=== PATIENT | female | born 1965 | race Caucasian/White ===

== ENCOUNTER 2020-11-22 07:56 | Outpatient (CLI) | payer OTHER, SELFPAY ==
[2020-11-22 08:26] LABS: Basophils Absolute Auto 0.1 K/mm3 (0.0-0.1); Eosinophils Absolute Auto 0.1 K/mm3 (0-0.3); Eosinophils Percent Auto 2.3 % (0-4.4); Hematocrit 37.2 % (37.0-47.0); Hemoglobin 11.9 g/dL (12.0-15.0); Immature Granulocyte Absolute 0.03 K/mm3 (0.00-0.031); Immature Granulocyte Percent A 0.5 % (0-0.5); Lymphocytes Percent Auto 36.6 % (18.3-44.2); Mean Corpuscular Hemoglobin 30.7 pg (26-34); Mean Corpuscular Volume 96.1 fl (80-100); Mean Platelet Volume 10.4 fl (7.4-10.4); Monocytes Absolute Auto 0.6 K/mm3 (0.1-0.6); Monocytes Percent Auto 9.7 % (2.6-8.5); Neutrophils Percent Auto 49.9 % (45.5-73.1); Platelet Count Result 285 k/mm3 (150-375); Red Blood Count 3.87 M/mm3 (4.2-5.4); Red Cell Distribution Width 14.2 % (11.5-14.5)
== END 2020-11-22 07:57 | disposition home or self-care (01) ==
LOC: ANHSURGERY 08:00
PROVIDERS: PCP Physician Assistant; Visit Provider Obstetrics & Gynecology
DX: Z01.818 Encounter for other preprocedural examination (principal); D21.9 Benign neoplasm of connective and other soft tissue, unspecified
CPT/HCPCS: 36415; 85025; 86850; 86900; 86901

== ENCOUNTER 2020-11-26 00:44 | Day surgery (SDC) | payer OTHER, SELFPAY ==
[2020-11-19 08:41] VITALS: BMI 30.7
--- NOTE | 2020-11-24 12:30 | PM.IMHP ---
H&P: HPI History of Present Illness Date/Time: 11/24/20 12:30 55-year-old 3 para 3 admitted for robotic total vaginal hysterectomy and bilateral salpingo-oophorectomy secondary to symptomatic uterine fibroids. She had pain discomfort dyspareunia uterus is nearly 300cm cubed by ultrasound risks and benefits reviewed including but not exclusive of , aspiration pneumonia, bleeding, transfusion, perforation injury to bowel, bladder, ureters, or other internal organs with need for open laparotomy. She received the ACOG handout total hysterectomy as well as advancing and out. She had all questions answered. She asked to proceed Chief Complaint: symptomatic uterine fibroids Review of Systems Review of Systems: All systems reviewed & are unremarkable except as noted in HPI and below PMFSH Family History Family History Mother Patient's mother is in good health Father Patient's father is in good health Sibling Patient's sister is in good health Social History Social History Smoking status: Never smoker Second hand tobacco smoke exposure: No Alcohol intake: current Drinks per week: 2 Substance use: never Substance use type: does not use Spiritual care concerns: No Meds Home Medications and Allergies Home Medications Medication Instructions Recorded Confirmed Type levothyroxine 88 mcg tablet 88 mcg PO DAILY #90 tablet 09/03/20 11/19/20 Rx Allergies Allergy/AdvReac Type Severity Reaction Status Date / Time ampicillin Allergy Mild Hives Verified 11/19/20 08:41 carbamazepine Allergy Mild Unknown Verified 11/19/20 08:41 Penicillins Allergy Mild Unknown Verified 11/19/20 08:41 phenytoin Allergy Mild Hives Verified 11/19/20 08:41 propranolol Allergy Mild Unknown Verified 11/19/20 08:41 STADOL Allergy Intermediate CHEST Uncoded 11/19/20 08:41 PRESSURE Exam Const: General: no acute distress Eyes: General: appearance normal, both eyes and all related structures Neck: Neck: supple and no JVD Thyroid: thyroid normal Resp: Effort & Inspection: normal respiratory effort Auscultation: clear to auscultation bilaterally Cardio: Rate: regular rate Rhythm: regular rhythm GI: Inspection: non-distended GI Palp: Yes Soft to palpation, No Tenderness to palpation present (GI) and No Guarding due to palpation present (GI) Auscultation: normal bowel sounds : External Female Exam: normal external appearance Speculum Exam - Vagina: normal appearance of the vagina Speculum Exam - Cervix: normal appearance of the cervix Bimanual exam- vagina & uterus: enlarged Bimanual Exam- Adnexa, other: no masses Skin: General skin exam: no rashes or lesions noted Extrem: General: normal to inspection and no edema Psych: Mental Status: mental status grossly normal Affect: normal affect Assessment and Plan Additional Plan impression: Symptomatic uterine fibroids Plan: Robotic total vaginal hysterectomy and bilateral salpingo-oophorectomy
[2020-11-26] VITALS (29 sets, daily range): BP systolic 91–130; BP diastolic 56–79; PULSE 49–74; RESP 10–20; TEMP 36.4–36.8; O2SAT 97–100; BMI 30.8
--- NOTE | 2020-11-26 06:53 | WPDANESEPPF ---
Anes - Initial Pre Proc Eval Procedure: Operation Date: 11/26/20 07:30 Proposed Procedures p Robotic Assisted Total Vaginal Hysterectomy With Bilateral Salpingo-oophorectomy - Byron Ledbetter MD Date/Time: 11/26/20 06:53 Surgeon: Byron Ledbetter MD Pre Op Diagnosis: Fibroids, Enlarged Uterus Patient Data Age: 55 Gender: F Height: 1.65 m Weight: 83.91 kg Allergies Allergy/AdvReac Type Severity Reaction Status Date / Time ampicillin Allergy Mild Hives Verified 11/19/20 08:41 carbamazepine Allergy Mild Unknown Verified 11/19/20 08:41 Penicillins Allergy Mild Unknown Verified 11/19/20 08:41 phenytoin Allergy Mild Hives Verified 11/19/20 08:41 propranolol Allergy Mild Unknown Verified 11/19/20 08:41 STADOL Allergy Intermediate CHEST Uncoded 11/19/20 08:41 PRESSURE Home Medications Medication Instructions Recorded Confirmed Type levothyroxine 88 mcg tablet 88 mcg PO DAILY #90 tablet 09/03/20 11/26/20 Rx Patient hx anesthesia problems: none Family hx anesthesia problems: none Results Review: All pre-operative results and documents have been reviewed as part of the pre-operative evaluation. [facility] Past Medical History Medical History (Updated 11/26/20 @ 06:59 by Byron Stevens MD) Fibroid uterus Surgical History Surgical History (Updated 11/26/20 @ 06:59 by Byron Stevens MD) H/O lumbosacral spine surgery Hx of tonsillectomy Family History Family History Mother Patient's mother is in good health Father Patient's father is in good health Sibling Patient's sister is in good health Social History Social History Smoking status: Never smoker Second hand tobacco smoke exposure: No Alcohol intake: current Drinks per week: 2 Substance use: never Substance use type: does not use Living arrangements: with family Spiritual care concerns: No Anes - Eval Final PreProcedure Day of Procedure 11/26/20 06:53 Patient weight: obese Heart: regular rate and rhythm Lungs: clear to auscultation Airway: Mallampati scale class 1 Neurological: alert and oriented Last oral intake: >/= 8 hours ASA classification: II Emergent: no Anesthetic plan: proceed Anesthesia type and monitoring: general ETT and standard monitoring Results Review: All pre-operative results and documents have been reviewed as part of the pre-operative evaluation. Informed Consent: The patient's anesthetic plan and its attendant risks and benefits were discussed with the patient/family/POA. Questions were solicited and answers provided to the satisfaction of the patient/family/POA.
[2020-11-26] MEDS: KETOROLAC 15 MG/ML VIAL (*BKC) IV PUSH (07:01)
[2020-11-26] MEDS: ACETAMINOPHEN 500 MG TABLET 1000 MG PO (07:02)
--- NOTE | 2020-11-26 07:17 | WPDHPUPDATE1 ---
History and Physical Update Update Date/Time: 11/26/20 07:17 History and Physical has been reviewed, including an updated exam of the patient. There are NO changes in the patient's condition. Risks, benefits, and alternatives have been discussed and questions answered. Patient agrees to proceed with procedure.
[2020-11-26] MEDS: ceFAZolin 2 GM/D5W 50 ML 2 GM/50 ML BAG IVPB (07:27)
--- NOTE | 2020-11-26 08:48 | W.PM.PROC2 ---
Procedure Note - Detailed Date of Procedure 11/26/20 Pre-op Diagnosis Fibroids, Enlarged Uterus Post-op Diagnosis same Procedure Performed Robotic total vaginal hysterectomy and bilateral salpingo-oophorectomy Surgeon Byron Ledbetter MD Anesthesia general Indications this is a 55-year-old female with a markedly enlarged uterus and pelvic pain suspected fibroids Findings uterus that measured more than 300g. Normal-appearing ovaries and tubes Description of Procedure the patient is prepped draped in normal sterile fashion placed in dorsal lithotomy position. Under excellent general endotracheal anesthesia weighted speculum placed posterior fornix vagina. The anterior lip of the cervix grasped with single-tooth tenaculum the uterus sounded to 11cm. Serial dilatation with fragmented dilators performed followed by passes the 10. JUN and the 3.5 cold cup. A 16 Bengali catheter was placed gently the bladder and drained clear urine. The remainder the instruments removed and the gloves were changed. A supraumbilical incision made the Veress needle passed in the abdomen. Abdomen filled with CO2 gas [id number]. The 8mm trocar advanced in the abdomen. The downside visualized no injury seen. Patient placed in Trendelenburg left and right lower quadrant incisions made the 8mm trocars advanced under direct visualization assuring no injury. A right upper quadrant incision made the 8mm trocar advanced under direct visualization assuring no injury. The robot was docked. Attention was turned to the delinquency counselor. The left round ligament was grasped, burned, cut. Anteriorly the bladder was reflected by sharply dissecting the peritoneum and reflecting the bladder the bladder caudally to the opposite round ligament was clamped, burned, cut. Next the left infundibulopelvic structure was skeletonized to remove the left ovary and tube. This was clamped, burned, cut and brought to the level of previously cut round ligament. In like fashion removing the right ovary and tube the right infundibulopelvic structure was skeletonized. This was serially clamped, burned, cut and brought to the level of previously cut round ligament. The cardinal broad ligaments on the left were then serially skeletonized these were clamped, burned, cut hugging the cervix and uterus until the uterine vessels could be seen on the left. These were very large tortuous. They were individually clamped, burned, cut. In like fashion the cardinal broad ligaments on the right were serially skeletonized. These were clamped, burned, cut and brought down the lateral edge of the cervix and uterus hugging them until the uterine vessels could be seen. Then the uterine vessels were also large and tortuous on the right. They were individually clamped, burned, cut and great blanching the uterus was seen. A colpotomy incision was made in the cervix uterus ovaries and tubes removed through the vagina. Blood loss was estimated [id number]. The vagina was closed with continuous running 0V lock from lateral edge to lateral edge back to the midline. Irrigation undertaken until clear and hemostasis was assured. The robot was undocked and the gas removed from the abdomen. The trocars removed and the incisions closed with 4 Monocryl and the patient was awakened and went to recovery in satisfactory condition. All sponge, needle, instrument counts were correct. There were no immediate complications noted Estimated Blood Loss 50 Drains No Packing No Pathology yes Complications No immediate complications Condition stable Disposition PACU
[2020-11-26] MEDS: LACTATED RINGERS 1,000 ML 30 ML IV CONT ×3 (09:01→14:10)
--- NOTE | 2020-11-26 09:37 | SUR.PHASEI ---
0937 large clot noted. perineum skin care provided. dr. jose j lira called and aware. will cont to monitor bleeding at this time. -
--- NOTE | 2020-11-26 09:48 | SUR.PHASEI ---
0948 - dr. jose j lira notified of pt's bleeding. pt tano pad and linens changed. will continue to monitor
[2020-11-26] MEDS: fentaNYL CITRATE INJ (*CRX) 100 MCG/2 ML VIAL 25 MCG IV PUSH ×4 (09:58→14:39)
--- NOTE | 2020-11-26 11:55 | SUR.PHASEI ---
1150 - dr. jose j lira at bedside, assessing pt's bleeding.
--- NOTE | 2020-11-26 12:05 | PM.GYNPNOP ---
PLASTICS AND COMPOSITES INSPECTOR - A/P Postoperative Procedures: Procedures Operation Date: 11/26/20 07:30 Actual Procedure Side Surgeon p Robotic Assisted Total Vaginal Hysterectomy With Bilateral Salpingo-oophorectomy Bilateral Byron Ledbetter MD Operation Date: 11/26/20 12:15 <No data on this case meets the specified criteria> Time Spent With Patient Time: Total time spent is greater than 50% in coordination of care (as documented) at patient's floor/unit and/or counseling patient: Time with patient: less than 15 minutes PLASTICS AND COMPOSITES INSPECTOR- PN:Subj Post-Op Subjective Date/time seen: 11/26/20 12:05 Interval history: Patient has been watched and continues to drain blood with a few clots. She is hemodynamically stable however it continues to bleed. In light of this I have offered her every view in the OR under sedation for checking the vaginal cuff and placing a stitch. She is agreeable and agrees to proceed PLASTICS AND COMPOSITES INSPECTOR - PN: Obj Data Vital Signs Vital Signs: Vital Signs - 24 hr 11/26/20 07:12 11/26/20 09:01 11/26/20 09:15 Temperature 97.7 F 97.5 F L Pulse Rate 65 74 55 L Respiratory Rate 14 14 14 Blood Pressure 122/73 114/64 102/63 Pulse Oximetry 100 100 100 11/26/20 09:30 11/26/20 09:45 11/26/20 10:00 Temperature Pulse Rate 56 L 53 L 49 L Respiratory Rate 10 L 10 L 12 Blood Pressure 129/75 121/57 L 122/78 Pulse Oximetry 98 100 100 11/26/20 10:15 11/26/20 10:30 11/26/20 10:45 Temperature Pulse Rate 56 L 59 L 58 L Respiratory Rate 12 20 14 Blood Pressure 130/78 129/79 120/77 Pulse Oximetry 100 99 100 11/26/20 11:00 11/26/20 11:15 11/26/20 11:30 Temperature Pulse Rate 53 L 55 L 58 L Respiratory Rate 12 16 12 Blood Pressure 110/72 108/72 105/62 Pulse Oximetry 100 100 98 11/26/20 11:45 11/26/20 12:00 Temperature Pulse Rate 53 L 60 Respiratory Rate 16 12 Blood Pressure 105/66 122/63 Pulse Oximetry 98 99 Intake/Output Intake/Output: Intake & Output 10/19/11/24/20 11/25/20 11/26/20 23:59 23:59 23:59 23:59 Intake Total 50 Balance 50 Meds/Results Medications: Active Medications Generic Name Dose Route Start Last Admin Trade Name Freq PRN Reason Stop Dose Admin Fentanyl Citrate 25 mcg 11/26/20 07:00 11/26/20 09:58 Fentanyl Citrate Inj (*Crx) 100 Mcg/2 Ml Vial IV PUSH 25 mcg Q2M PRN Administration Pain Lactated Ringer's 1,000 mls @ 30 mls/hr 11/26/20 06:35 11/26/20 09:01 Lr - Lactated Ringers Iv IV CONT 30 mls/hr .Q24H CJ Administration Lactated Ringer's 1,000 mls @ 30 mls/hr 11/26/20 07:00 11/26/20 09:01 Lr - Lactated Ringers Iv IV CONT 30 mls/hr .Q24H CJ Administration Ondansetron HCl 4 mg 11/26/20 07:00 Ondansetron Inj 4 Mg/2 Ml Vial IV PUSH ONCE PRN Nausea
--- NOTE | 2020-11-26 12:59 | SUR.PHASEI ---
patient awake aware will be returning to OR soon with Dr Mercedes to exam and address bleeding. phone consent obtained from Mom.
--- NOTE | 2020-11-26 14:07 | W.PM.PROC2 ---
Procedure Note - Detailed Date of Procedure 11/26/20 Pre-op Diagnosis Postop bleed Post-op Diagnosis same Procedure Performed Repair of small lateral wall laceration Surgeon Byron Ledbetter MD Anesthesia MAC Indications This is a patient who underwent robotic total vaginal hysterectomy had postop bleeding. Findings An approximately 3cm wall laceration along the left lateral wall presumably from removal of the uterus. About 100cc of clots removed from the vagina. Description of Procedure The patient was prepped draped in the normal sterile fashion placed in the dorsal lithotomy position. Under excellent MAC anesthesia a weighted speculum placed in posterior fornix of the vagina. The vaginal cuff appeared intact there was of small bloody spot which was a [id number] 3-0 Vicryl was placed. Laterally of approximately 3cm laceration was noted along the vaginal wall. This was oozing and was cauterized. The vast the laceration was closed with 3 [id number] 0 Vicryl stitch and excellent hemostasis was noted. It was watched for 5minutes and no bleeding was seen. The vagina was then packed with Premarin soaked packing. Blood loss was estimated 25cc for this procedure Estimated Blood Loss 25 Drains No Packing Yes Pathology none sent Complications No immediate complications Condition stable Disposition PACU
--- NOTE | 2020-11-26 15:42 | PC.NURSE ---
This patient, Rosalie Hoover, was received from PACU on 11/26/20 at 1542. Patient/family oriented to unit policies and routines
[2020-11-26] MEDS: DEXTROSE 5%/LACTATED RINGERS 1,000 ML 125 ML IV CONT (16:02)
[2020-11-26] MEDS: LANOLIN (LANSINOH) 7.5 GM CREAM 1 APPLIC (16:03)
[2020-11-26] MEDS: KETOROLAC 30 MG/ML VIAL (*BKC) IV PUSH ×2 (16:10→22:06)
[2020-11-26] MEDS: ENOXAPARIN 40 MG/0.4 ML SYRINGE SUB-Q (17:53)
[2020-11-26] MEDS: HYDROcodone/acetaminophen (*CRX) 5-325 MG TABLET 1 TAB PO (17:53)
[2020-11-26] MEDS: SODIUM CHLORIDE 0.9% IV 500 ML IV CONT (22:05)
[2020-11-27] MEDS: DEXTROSE 5%/LACTATED RINGERS 1,000 ML 125 ML IV CONT (01:00)
[2020-11-27 04:15] VITALS: BP 98/57; PULSE 65; RESP 16; TEMP 36.8; O2SAT 99
[2020-11-27] MEDS: HYDROcodone/acetaminophen (*CRX) 5-325 MG TABLET 1 TAB PO ×2 (04:21→08:02)
[2020-11-27] MEDS: IBUPROFEN 600 MG TABLET PO (04:21)
[2020-11-27 05:42] LABS: Basophils Percent Auto 0.4 % (0.2-1.2); Eosinophils Absolute Auto 0.1 K/mm3 (0-0.3); Eosinophils Percent Auto 1.2 % (0-4.4); Hematocrit 25.3 % (37.0-47.0); Hemoglobin 8.2 g/dL (12.0-15.0); Immature Granulocyte Absolute 0.03 K/mm3 (0.00-0.031); Immature Granulocyte Percent A 0.3 % (0-0.5); Lymphocytes Absolute Auto 1.51 K/mm3 (0.9-3.2); Lymphocytes Percent Auto 14.6 % (18.3-44.2); Mean Corpuscular HGB Conc 32.4 g/dl (32-36); Mean Corpuscular Hemoglobin 30.4 pg (26-34); Mean Corpuscular Volume 93.7 fl (80-100); Mean Platelet Volume 11.9 fl (7.4-10.4); Monocytes Absolute Auto 0.8 K/mm3 (0.1-0.6); Monocytes Percent Auto 7.7 % (2.6-8.5); Neutrophils Absolute Auto 7.8 K/mm3 (1.3-6.7); Neutrophils Percent Auto 75.8 % (45.5-73.1); Platelet Count Result 227 k/mm3 (150-375); White Blood Count 10.3 K/mm3 (4.5-10.0)
--- NOTE | 2020-11-27 07:11 | P.DS_ITS ---
DS: Admitting Diagnosis Discharge Date Admitting Diagnosis pelvic pain and enlarged uterus DS: Summary Hospital Course Hospital Course: patient was admitted for robotic total vaginal hysterectomy and bilateral salpingectomy. Her course was complicated by some vaginal bleeding which was found to be a small tear in the left vaginal wall. This was repaired shortly after procedure she had no bleeding following packing and. She was up, voiding without difficulty, ambulating, generally without complaints Time Spent with Patient Time attestation: Total time spent providing and/or coordinating discharge services: Exam Const: General: no acute distress Eyes: General: appearance normal, both eyes and all related structures Neck: Neck: supple and no JVD Thyroid: thyroid normal Resp: Effort & Inspection: normal respiratory effort Auscultation: clear to auscultation bilaterally Cardio: Rate: regular rate Rhythm: regular rhythm GI: Inspection: non-distended GI Palp: Yes Soft to palpation, No Tenderness to palpation present (GI) and No Guarding due to palpation present (GI) Auscultation: normal bowel sounds Skin: General skin exam: no rashes or lesions noted Extrem: General: normal to inspection and no edema Psych: Mental Status: mental status grossly normal Affect: normal affect DS: Data Data Completed and Pending Pending studies at discharge: Pending at discharge 11/26/20 08:11 Surgical [PTH] Routine Labs on day of discharge: Labs from last 24 hours 11/27/20 04:20 WBC 10.3 H RBC 2.70 L Hgb 8.2 L D Hct 25.3 L MCV 93.7 MCH 30.4 MCHC 32.4 RDW 14.0 Plt Count 227 MPV 11.9 H Immature Gran % (Auto) 0.3 Neut % (Auto) 75.8 H Lymph % (Auto) 14.6 L Robeson % (Auto) 7.7 Eos % (Auto) 1.2 Baso % (Auto) 0.4 Lymph # (Auto) 1.51 Robeson # (Auto) 0.8 H Eos # (Auto) 0.1 Baso # (Auto) 0.0 Abs Immat Gran (auto) 0.03 Absolute Neuts (auto) 7.8 H Absolute Nucleated RBC 0.0 Nucleated RBC % 0.0 Discharge Plan Discharge Patient Disposition: Home, Self-Care Stand Alone Forms: General Discharge Instructions Follow-up/Referrals: Byron Ledbetter MD [Physician] - Discharge Medications: New hydrocodone-acetaminophen 5-325 mg tablet 1 tablet PO Q4H PRN (Reason: pain) Qty: 30 RF: 0 No Action levothyroxine 88 mcg tablet 88 mcg PO DAILY Qty: 90 RF: 0
--- NOTE | 2020-11-27 07:12 | PM.GYNPNOP ---
ELASTIC TAPE INSERTER - A/P Postoperative Procedures: Procedures Operation Date: 11/26/20 07:30 Actual Procedure Side Surgeon p Robotic Assisted Total Vaginal Hysterectomy With Bilateral Salpingo-oophorectomy Bilateral Byron Ledbetter MD Operation Date: 11/26/20 12:15 Actual Procedure Side Surgeon p Vaginal Exam Under Anesthesia Byron Ledbetter MD Time Spent With Patient Time: Total time spent is greater than 50% in coordination of care (as documented) at patient's floor/unit and/or counseling patient: Time with patient: less than 15 minutes ELASTIC TAPE INSERTER- PN:Subj Post-Op Subjective Date/time seen: 11/27/20 07:12 Interval history: Patient has been watched and continues to drain blood with a few clots. She is hemodynamically stable however it continues to bleed. In light of this I have offered her every view in the OR under sedation for checking the vaginal cuff and placing a stitch. She is agreeable and agrees to proceed Subjective: patient reports feeling better and patient has no complaints Review of Systems Review of Systems: All systems reviewed & are unremarkable except as noted in HPI and below Exam Const: General: no acute distress Eyes: General: appearance normal, both eyes and all related structures Neck: Neck: supple and no JVD Thyroid: thyroid normal Resp: Effort & Inspection: normal respiratory effort Auscultation: clear to auscultation bilaterally Cardio: Rate: regular rate Rhythm: regular rhythm GI: Inspection: non-distended GI Palp: Yes Soft to palpation, No Tenderness to palpation present (GI) and No Guarding due to palpation present (GI) Auscultation: normal bowel sounds : General: Yes bladder normal to palpation External Female Exam: normal external appearance Speculum Exam - Vagina: normal vaginal discharge and No vaginal bleeding Speculum Exam - Cervix: nontender Bimanual exam- vagina & uterus: bladder normal to palpation and No Cervical tenderness present OB/external & speculum: No vaginal bleeding Skin: General skin exam: no rashes or lesions noted Extrem: General: normal to inspection and no edema Psych: Mental Status: mental status grossly normal Affect: normal affect ELASTIC TAPE INSERTER - PN: Obj Data Vital Signs Vital Signs: Vital Signs - 24 hr 11/26/20 09:01 11/26/20 09:15 11/26/20 09:30 Temperature 97.5 F L Pulse Rate 74 55 L 56 L Respiratory Rate 14 14 10 L Blood Pressure 114/64 102/63 129/75 Pulse Oximetry 100 100 98 11/26/20 09:45 11/26/20 10:00 11/26/20 10:15 Temperature Pulse Rate 53 L 49 L 56 L Respiratory Rate 10 L 12 12 Blood Pressure 121/57 L 122/78 130/78 Pulse Oximetry 100 100 100 11/26/20 10:30 11/26/20 10:45 11/26/20 11:00 Temperature Pulse Rate 59 L 58 L 53 L Respiratory Rate 20 14 12 Blood Pressure 129/79 120/77 110/72 Pulse Oximetry 99 100 100 11/26/20 11:15 11/26/20 11:30 11/26/20 11:45 Temperature Pulse Rate 55 L 58 L 53 L Respiratory Rate 16 12 16 Blood Pressure 108/72 105/62 105/66 Pulse Oximetry 100 98 98 11/26/20 12:00 11/26/20 12:15 11/26/20 12:30 Temperature Pulse Rate 60 58 L 64 Respiratory Rate 12 12 16 Blood Pressure 122/63 109/66 104/74 Pulse Oximetry 99 97 97 11/26/20 12:45 11/26/20 13:00 11/26/20 13:15 Temperature Pulse Rate 61 62 60 Respiratory Rate 12 13 12 Blood Pressure 97/67 L 106/67 95/65 L Pulse Oximetry 98 98 99 11/26/20 14:10 11/26/20 14:25 11/26/20 14:40 Temperature 98.1 F Pulse Rate 61 55 L 65 Respiratory Rate 12 12 15 Blood Pressure 98/65 L 107/69 101/71 Pulse Oximetry 100 100 98 11/26/20 14:55 11/26/20 15:10 11/26/20 15:25 Temperature Pulse Rate 71 67 63 Respiratory Rate 20 12 15 Blood Pressure 101/67 105/64 111/67 Pulse Oximetry 99 98 97 11/26/20 15:45 11/26/20 19:20 11/26/20 19:50 Temperature 97.9 F 98.2 F Pulse Rate 63 64 59 L Respiratory Rate 16 16 18 Blood Pressure 97/57 L 97/58 L 91/57 L Pulse Oximetry 100 97 99 11/26/20 23:00 11/27/20 04:15 Temperat
[2020-11-27 07:40] VITALS: BP 90/55; PULSE 63; RESP 12; TEMP 36.5; O2SAT 96
[2020-11-27] MEDS: SIMETHICONE 80 MG TAB.CHEW PO (08:02)
[2020-11-27] MEDS: DOCUSATE SODIUM 100 MG CAPSULE PO (08:02)
== END 2020-11-27 11:40 | disposition home or self-care (01) ==
LOC: ANHSURGERY 11:58 → ANHOB2 15:35
PROVIDERS: PCP Physician Assistant; Visit Provider Obstetrics & Gynecology
PROC: (CPT 58552; principal; 2020-11-26 07:30)
DX: D25.1 Intramural leiomyoma of uterus (principal); N88.8 Other specified noninflammatory disorders of cervix uteri; N80.0 Endometriosis of uterus; N83.8 Other noninflammatory disorders of ovary, fallopian tube and broad ligament; N83.02 Follicular cyst of left ovary; N83.01 Follicular cyst of right ovary; N73.6 Female pelvic peritoneal adhesions (postinfective); E66.9 Obesity, unspecified; Z68.30 Body mass index [BMI] 30.0-30.9, adult
CPT/HCPCS: 58552; S2900; 36415; 85025; 86850; 86900; 86901; 88307; 99199; A9270; J0690; J1100; J1650; J1885; J2250; J2405; J2704; J2710; J3010; J7030; J7040; J7120; J7121

== ENCOUNTER 2022-12-05 07:00 | Outpatient (NON) | payer OTHER, SELFPAY | END 2022-12-05 07:01 | disposition home or self-care (01) | LOC: ANHLAB 12-06 14:31 | PROVIDERS: PCP Physician Assistant; Visit Provider Nurse Practitioner | DX: L72.0 Epidermal cyst (principal) | CPT/HCPCS: 88305 ==

== ENCOUNTER 2023-01-04 09:30 | Outpatient (CLI) | payer OTHER, SELFPAY ==
--- NOTE | ~2023-01-04 | XR_ITS ---
XR wrist LT min 3V 01/04/2023 09:58 Indication: Left wrist pain Procedure: 4 views left wrist Comparison: No prior studies for comparison. 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 No fracture or traumatic malalignment. Scaphoid appears intact. No focal soft tissue abnormality. No foreign bodi es. Impression: 1: No acute fracture. Reviewed, dictated and finalized at location L. SPLICER Impression: 1: No acute fracture.
== END 2023-01-04 09:31 | disposition home or self-care (01) ==
PROVIDERS: PCP Physician Assistant; Visit Provider Physician Assistant
DX: M25.532 Pain in left wrist (principal)
CPT/HCPCS: 73110

== ENCOUNTER 2023-02-06 11:50 | Outpatient (CLI) | payer OTHER, SELFPAY ==
--- NOTE | 2023-02-06 12:28 | ECG_ITS ---
Measurements Intervals [place] Rate: 50 P: 68 AK: 186 QRS: 19 QRSD: 102 T: 30 QT: 414 QTc: 378 Interpretive Statements SINUS BRADYCARDIA INCOMPLETE RIGHT BUNDLE BRANCH BLOCK BASELINE ARTIFACT- I, II, III, AVR, AVL, AVF BORDERLINE ECG NO PREVIOUS ECG AVAILABLE FOR COMPARISON Electronically Signed On 02-06-2023 13:00:57 OIL GAS AND PIPE TESTER by Brien Tyler D.O.
[2023-02-06 13:00] LABS: Basophils Absolute Auto 0.1 K/mm3 (0.0-0.1); Basophils Percent Auto 1.1 % (0.2-1.2); Eosinophils Absolute Auto 0.1 K/mm3 (0-0.3); Eosinophils Percent Auto 1.5 % (0-4.4); Hematocrit 40.3 % (37.0-47.0); Hemoglobin 12.6 g/dL (12.0-15.0); Immature Granulocyte Absolute 0.02 K/mm3 (0.00-0.031); Immature Granulocyte Percent A 0.4 % (0-0.5); Lymphocytes Absolute Auto 2.09 K/mm3 (0.9-3.2); Lymphocytes Percent Auto 39.5 % (18.3-44.2); Mean Corpuscular HGB Conc 31.3 g/dl (32-36); Mean Corpuscular Hemoglobin 29.7 pg (26-34); Mean Platelet Volume 11.2 fl (7.4-10.4); Monocytes Absolute Auto 0.5 K/mm3 (0.1-0.6); Monocytes Percent Auto 9.5 % (2.6-8.5); Neutrophils Absolute Auto 2.5 K/mm3 (1.3-6.7); Platelet Count Result 242 k/mm3 (150-375); Red Blood Count 4.24 M/mm3 (4.2-5.4); Red Cell Distribution Width 14.2 % (11.5-14.5); White Blood Count 5.3 K/mm3 (4.5-10.0)
[2023-02-06 13:09] LABS: Urine Cotinine NEGATIVE
[2023-02-06 13:10] LABS: Albumin Level 4.6 g/dL (3.5-5.1); Estimated Glomerular Filt Rate > 60; Glucose 96 mg/dL (65-110)
[2023-02-06 13:12] LABS: Hemoglobin A1C 5.7 % (<5.7)
== END 2023-02-06 11:51 | disposition home or self-care (01) ==
LOC: ANHSURGERY 11:54
PROVIDERS: PCP Physician Assistant; Visit Provider Orthopaedic Surgery
DX: M17.12 Unilateral primary osteoarthritis, left knee (principal); Z01.818 Encounter for other preprocedural examination; I45.10 Unspecified right bundle-branch block
CPT/HCPCS: 80307; 82040; 82565; 82947; 83036; 85025; 86850; 86900; 86901; 87081; 93005

== ENCOUNTER 2023-02-12 01:07 | Day surgery (SDC) | payer OTHER, SELFPAY ==
[2023-02-06 11:25] VITALS: BP 132/84; PULSE 70; RESP 18; TEMP 37.2; O2SAT 100; BMI 32.3
--- NOTE | 2023-02-06 11:26 | PC.NURSE ---
PRE-OP INSTRUCTIONS, PLEASE READ CAREFULLY Report to the Outpatient Waiting Room, entrance under the green pavilion located off [facility], at time _0600_ on date _02/12/23_. Planned Procedure Time: _0730_. PACK A SMALL OVERNIGHT BAG AND LEAVE IT IN THE CAR ALONG WITH YOUR WALKER Time changes happen often and if your time is changed the preop area will call you the afternoon before. - You and your visitor will be asked to self-screen and do not enter if you have any COVID symptoms. - A mask is optional within the hospital at this time. -VISITING HOURS 8AM-8PM Patients may have clear liquids (water, carbonated beverages, clear teas, apple juice) until 3 hours prior to surgery (0430 AM) with a maximum of 20 ounces. - No food from midnight until time of surgery Take the following medications with a SIP of water the morning of surgery: _LEVOTHYROXINE_ DO NOT STOP ANY OF YOUR OTHER PRESCRIPTION MEDICATIONS PRIOR TO SURGERY ?EXCEPT THE FOLLOWING Medications to discontinue per ANESTHESIA - APPLE CIDER COMPLEX , Date to take last dose 02/09/23_ Please no make-up, nail indonesian, hairspray, perfume, deodorant, or body powder the day of surgery. No jewelry (including any body piercings) or valuables the day of surgery, leave them at home. Please take a shower or bath the night before, or the morning of, surgery with an antibacterial soap. Wear comfortable, loose fitting clothing. - Jewelry must be removed prior to entering the operating room. Rings and piercings that are not removed may be cut off. - The hospital will not accept responsibility for valuables. - Please leave all valuables, including medications, at home the day of surgery. If you are going home after surgery, a licensed bus driver/monitor must drive you home. - NO public transportation without another adult if you receive anesthesia. - We recommend that an adult stay with you for 24 hours following discharge. - We also recommend that you do not drive, make important decision, drink alcoholic beverages, or take any drugs that were not prescribed by your health care provider for at least 24 hours after your discharge time. Follow any additional instructions given to you from your surgeon. If you or anyone in your household have experienced Covid symptoms in the past week, please notify your surgeon or the nurse liaison at the phone number below for possible testing. Instructions given to _PATIENT_and asked if any additional questions and then verbalized understanding. Patient advised to call surgeon office or pre surgery nurse liaison [phone] if any additional questions.
--- NOTE | 2023-02-08 10:35 | PM.IMHP ---
H&P: HPI History of Present Illness Date/Time: 02/08/23 10:35 Chief Complaint: Knee pain and osteoarthritis left. Narrative: Patient has had knee pain on the left for many years now. She has failed conservative treatment consisting medicine therapy cortisone exercise time. She is to the point where nothing else is working would like to consider surgical intervention. Review of Systems Musculoskeletal: Musculoskeletal: Reports arthralgias and Reports joint swelling PMFSH Past Medical History Medical History Fibroid uterus Surgical History Surgical History H/O lumbosacral spine surgery History of hysterectomy Hx of tonsillectomy Family History Family History Mother Patient's mother is in good health Father Patient's father is in good health Sibling Patient's sister is in good health Social History Social History (Updated 12/18/22 @ 09:03 by Estefania Baxter CMA) Smoking status: Never smoker Second hand tobacco smoke exposure: No Additional smoking assessment comments: PT KARI ALL FORMS OF TOBACCO USE Alcohol intake: current Drinks per week: 2 Substance use: never Substance use type: does not use Lack of Transportation: No Lack of Food: Never True Current Housing: I Have Housing Concerned About Future Housing: No Difficulty Paying Gas/Electric Bills: No Difficulty Paying for Meds: No Currently Unemployed: No Education: Associate Degree Difficulty w/ Childcare or Family Care: No Living arrangements: with family Occupation/Education: unemployed Spiritual care concerns: No Meds Home Medications and Allergies Home Medications Medication Instructions Recorded Confirmed Type celecoxib 200 mg capsule (Celebrex) 200 mg PO DAILY 10/02/22 02/06/23 History levothyroxine 88 mcg tablet 88 mcg PO DAILY #90 tabs 10/30/22 02/06/23 Rx cider [id number] 300 1 tablet PO DAILY 02/06/23 02/06/23 History mg-8.3 mg tablet Allergies Allergy/AdvReac Type Severity Reaction Status Date / Time ampicillin Allergy Mild Hives Verified 02/06/23 12:08 carbamazepine Allergy Mild Unknown-TOLD Verified 02/06/23 12:08 WHEN HOSPILIZED WITH [facility] Penicillins Allergy Mild Hives Verified 02/06/23 12:08 phenytoin Allergy Mild Hives Verified 02/06/23 12:08 propranolol Allergy Mild Unknown-UNABLE Verified 02/06/23 12:08 TO RECALL butorphanol [From Stadol] Allergy Unknown chest Verified 02/06/23 12:08 pressure Exam Narrative: On exam she has motion knee from 3 to 110?. She has varus deformity She walks with an antalgic gait. Neurologically she appears to be grossly intact. She has pain and crepitus with any manipulation of her left knee. Eyes: General: appearance normal, both eyes and all related structures Neck: Neck: supple Resp: Effort & Inspection: normal respiratory effort Cardio: Rate: regular rate Rhythm: regular rhythm Assessment and Plan Assessment and plan (1) Osteoarthritis of left knee: Code(s): M17.12 - Unilateral primary osteoarthritis, left knee Status: Acute Assessment and Plan: Patient has osteoarthritis of the left knee. She has failed conservative treatment like to consider knee replacement surgery. I discussed treatment options with her. Risks benefits limitations and alternatives were discussed in detail. Will proceed with a total knee arthroplasty on the left per her request.
[2023-02-12] VITALS (13 sets, daily range): BP systolic 100–136; BP diastolic 69–95; PULSE 63–72; RESP 7–20; TEMP 35.5–36.5; O2SAT 96–100
--- NOTE | ~2023-02-12 | XR_ITS ---
EXAMINATION: [id number] DATE: 02/12/2023 10:12 INDICATION: Total left knee arthroplasty. Postop. TECHNIQUE: 2 views of left knee were obtained. COMPARISON: Left knee radiographs 01/08/2023 FINDINGS: There is a total left knee arthroplasty with patellar resurfacing in near-anatomic alignmen t. No fracture. There is gas in the knee joint and soft tissues, consistent with recent surgery. Ante rior skin alyssa are noted. IMPRESSION: 1. Total left knee arthroplasty in near-anatomic alignment. Reviewed, dictated and finalized at location [facility]
--- NOTE | 2023-02-12 06:42 | WPDHPUPDATE1 ---
History and Physical Update Update Date/Time: 02/12/23 06:42 History and Physical has been reviewed, including an updated exam of the patient. There are NO changes in the patient's condition. Risks, benefits, and alternatives have been discussed and questions answered. Patient agrees to proceed with procedure.
[2023-02-12] MEDS: ACETAMINOPHEN 500 MG TABLET 1000 MG PO (07:03)
[2023-02-12] MEDS: VANCOMYCIN 1,250 MG/NS 250 ML 1,250 MG/250 ML BAG 166.67 MG IVPB (07:11)
[2023-02-12] MEDS: TRANEXAMIC ACID 1,000MG/ISO100 1,000 MG/100 ML BAG 200 MG IVPB (07:13)
--- NOTE | 2023-02-12 07:20 | WPDANESEPPF ---
Anes - Initial Pre Proc Eval Procedure: Operation Date: 02/12/23 07:30 Proposed Procedures p Left Total Knee Arthroplasty - Bert Casas MD Date/Time: 02/12/23 07:20 Surgeon: Bert Casas MD Pre Op Diagnosis: O A Left Knee Patient Data Age: 57 Gender: F Height: 1.64 m Weight: 87.4 kg Last Vital Signs Temp 37.2 C 02/06/23 11:25 Pulse 70 02/06/23 11:25 Resp 18 02/06/23 11:25 BP 132/84 02/06/23 11:25 Pulse Ox 100 02/06/23 11:25 O2 Del Method Room Air 02/06/23 11:25 Allergies Allergy/AdvReac Type Severity Reaction Status Date / Time ampicillin Allergy Mild Hives Verified 02/12/23 07:01 carbamazepine Allergy Mild Unknown-TOLD Verified 02/12/23 07:01 WHEN HOSPILIZED WITH [facility] Penicillins Allergy Mild Hives Verified 02/12/23 07:01 phenytoin Allergy Mild Hives Verified 02/12/23 07:01 propranolol Allergy Mild Unknown-UNABLE Verified 02/12/23 07:01 TO RECALL butorphanol [From Stadol] Allergy Unknown chest Verified 02/12/23 07:01 pressure Home Medications Medication Instructions Recorded Confirmed Type celecoxib 200 mg capsule (Celebrex) 200 mg PO DAILY 10/02/22 02/12/23 History levothyroxine 88 mcg tablet 88 mcg PO DAILY #90 tabs 10/30/22 02/12/23 Rx cider [id number] 300 1 tablet PO DAILY 02/06/23 02/12/23 History mg-8.3 mg tablet rivaroxaban 10 mg tablet (Xarelto) 10 mg PO DAILY PE prophylaxis s/p 02/09/23 Rx joint replacement surgery #14 tabs Patient hx anesthesia problems: none Family hx anesthesia problems: none Results Review: All pre-operative results and documents have been reviewed as part of the pre-operative evaluation. [facility] Past Medical History Medical History Fibroid uterus Surgical History Surgical History H/O lumbosacral spine surgery History of hysterectomy Hx of tonsillectomy Family History Family History Mother Patient's mother is in good health Father Patient's father is in good health Sibling Patient's sister is in good health Social History Social History Smoking status: Never smoker Second hand tobacco smoke exposure: No Additional smoking assessment comments: PT KARI ALL FORMS OF TOBACCO USE Alcohol intake: current Drinks per week: 2 Substance use: never Substance use type: does not use Lack of Transportation: No Lack of Food: Never True Current Housing: I Have Housing Concerned About Future Housing: No Difficulty Paying Gas/Electric Bills: No Difficulty Paying for Meds: No Currently Unemployed: No Education: Associate Degree Difficulty w/ Childcare or Family Care: No Living arrangements: with family Occupation/Education: unemployed Spiritual care concerns: No Anes - Eval Final PreProcedure Day of Procedure 02/12/23 07:20 Patient weight: obese Heart: regular rate and rhythm Lungs: clear to auscultation Airway: Mallampati scale class II Neurological: alert and oriented Last oral intake: >/= 8 hours ASA classification: III Emergent: no Anesthetic plan: proceed Anesthesia type and monitoring: general LMA and standard monitoring Results Review: All pre-operative results and documents have been reviewed as part of the pre-operative evaluation. Informed Consent: The patient's anesthetic plan and its attendant risks and benefits were discussed with the patient/family/POA. Questions were solicited and answers provided to the satisfaction of the patient/family/POA.
[2023-02-12] MEDS: ceFAZolin 2 GM/D5W 50 ML 2 GM/50 ML BAG IVPB ×2 (07:36→16:24)
--- NOTE | 2023-02-12 07:36 | WPDANESPNB ---
Anes - Peripheral Nerve Block Date/Time: 02/12/23 07:36 I have discussed with the patient/family/POA the placement of a peripheral nerve block for post-operative pain management, including associated risks, benefits, complications, and side effects. Alternative methods of post-operative analgesia were detailed. Questions were solicited and answers provided to the satisfaction of the patient/family/POA. Time-Out: A pre-procedural Time-Out was completed immediately before starting the procedure and confirmed: Patient Identification, Site, Procedure, Patient Position and the Availability of Requisite Equipment. Clinical Indications: Acute post-operative pain management requested by the operative surgeon. Nerve Block Insertion Note Anes-nerve block: adductor canal left Patient position: supine Skin prep: chlorhexidine Needle: 22 gauge, stimulating, insulated echogenic needle. Needle length: 80 mm Technique: ultrasound Technique comment: mid2mg [id number] Injectate: bupivacaine 0.5% with epi 5 mcg/ml (30ml no epi) and dexamethasone (mg) (4) Observations: tolerated well Complications: none Procedure start time:: 725 Procedure end time:: 732
[2023-02-12] MEDS: GENTAMICIN BONE CEMENT REFOBACIN 1 EACH TOPICAL (08:21)
--- NOTE | 2023-02-12 09:06 | W.PM.PROC2 ---
Procedure Note - Detailed Date of Procedure 02/12/23 Pre-op Diagnosis Osteoarthritis Left Knee Post-op Diagnosis Same Procedure Performed LEFT total knee arthroplasty Surgeon Bert Casas MD Anesthesia General Indications Arthritis and Pain Description of Procedure The patient was brought to the operating room #7. A general anesthetic was administered. Placed on the operating table and sterilely prepped and draped in usual manner. A longitudinal incision was made. Tourniquet inflated to 300 mmHg for a total of 38 minutes. Dissection carried down to the fascia. Medial parapatellar incision was made and the patella subluxated laterally. Patella cut from 21 to 15 mm and sized for a 34 mm button. The tibia cut perpendicular to the long axis and femur cut in 5 degrees of valgus, a 62.5 femur trialed. 67 tibia was felt to fit the best. The soft tissue balanced, hemostasis obtained. All [address], 67 tibia, 62.5 femur, 34 mm patella, and 11AS mm poly. Motion was 0-125 degrees with good stability in both flexion and extension. The wound was closed with #2 Vicryl, 2-0 Vicryl and alyssa. [employer] Estimated Blood Loss 200 Drains No Packing No Pathology None sent Complications No immediate complications Condition Stable Disposition PACU [facility] Billing Surgery - Charge Forward: Surgery Billing (LEFT TOTAL KNEE [id number])
[2023-02-12] MEDS: LACTATED RINGERS 1,000 ML 30 ML IV CONT ×2 (09:31)
[2023-02-12] MEDS: fentaNYL CITRATE INJ (*CRX) 100 MCG/2 ML VIAL 25 MCG IV PUSH ×4 (09:46→10:00)
--- NOTE | 2023-02-12 10:30 | PC.NURSE ---
Telephone report received from Aida RECOVERY RN.
--- NOTE | 2023-02-12 10:40 | ADMGEN ---
This patient, Rosalie Hoover, was admitted to [facility] Surg Room 325-01. Patient/family oriented to hospital policies and general routines including ID bracelet, bed and alarms, visiting hours, pain management, procedures, bathroom and other care routines, personal items, smoking policy, room service/diet, and visiting hours. Information on how to activate the Rapid Response Team has been discussed. Patient/Family are encouraged to report perceived risks to care and to ask questions if they do not understand what they are told or what they should do.
[2023-02-12] MEDS: CYCLOBENZAPRINE HCL 10 MG TABLET PO ×2 (10:59→22:58)
[2023-02-12] MEDS: HYDROcodone/acetaminophen (*CRX) 7.5-325 MG TABLET 1 TAB PO ×2 (10:59→16:25)
[2023-02-12] MEDS: traMADol HCL (*CRX) 50 MG TABLET PO (13:44)
--- NOTE | 2023-02-12 14:10 | PC.NURSE ---
Spouse brought in Cryocuff from home to use for left knee.
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
[2023-02-12] MEDS: SENNA/DOCUSATE SODIUM TABLET 2 TAB PO (16:24)
[2023-02-12] MEDS: RIVAROXABAN 10 MG TABLET PO (16:25)
[2023-02-13] VITALS: BP 113/67; PULSE 65; RESP 16; TEMP 36.2; O2SAT 99
[2023-02-13 00:20] VITALS: BP 108/63; PULSE 60; RESP 16; TEMP 35.9; O2SAT 99
[2023-02-13] MEDS: ceFAZolin 2 GM/D5W 50 ML 2 GM/50 ML BAG IVPB ×2 (00:42→08:10)
[2023-02-13] MEDS: HYDROcodone/acetaminophen (*CRX) 7.5-325 MG TABLET 1 TAB PO ×3 (00:43→11:37)
[2023-02-13 04:20] VITALS: BP 108/63; PULSE 60; RESP 16; TEMP 35.9; O2SAT 99
[2023-02-13 06:50] LABS: Hematocrit 29.9 % (37.0-47.0); Hemoglobin 9.6 g/dL (12.0-15.0); White Blood Count 10.1 K/mm3 (4.5-10.0)
[2023-02-13 06:51] LABS: Basophils Percent Auto 0.2 % (0.2-1.2); Eosinophils Percent Auto 0.1 % (0-4.4); Immature Granulocyte Absolute 0.03 K/mm3 (0.00-0.031); Immature Granulocyte Percent A 0.3 % (0-0.5); Lymphocytes Absolute Auto 1.72 K/mm3 (0.9-3.2); Mean Corpuscular HGB Conc 32.1 g/dl (32-36); Mean Corpuscular Volume 93.4 fl (80-100); Mean Platelet Volume 10.7 fl (7.4-10.4); Monocytes Absolute Auto 1.3 K/mm3 (0.1-0.6); Monocytes Percent Auto 12.8 % (2.6-8.5); Neutrophils Absolute Auto 7.1 K/mm3 (1.3-6.7); Neutrophils Percent Auto 69.6 % (45.5-73.1); Platelet Count Result 230 k/mm3 (150-375); Red Cell Distribution Width 14.5 % (11.5-14.5)
[2023-02-13 06:59] LABS: Anion Gap 3 mmol/L (8-16); Blood Urea Nitrogen 13 mg/dL (7-17); Calcium 8.8 mg/dL (8.4-10.2); Carbon Dioxide 31 mmol/L (22-30); Chloride 99 mmol/L (98-107); Estimated CRCL calculation 92 ml/min; Estimated Glomerular Filt Rate > 60; Glucose 102 mg/dL (65-110); Magnesium 1.8 mg/dL (1.6-2.3); Potassium 4.7 mmol/L (3.4-5.0); Sodium 133 mmol/L (137-145)
[2023-02-13 07:32] LABS: Thyroid Stimulating Hormone Reflex 0.656 uIU/mL (0.465-4.68)
[2023-02-13 07:59] VITALS: BP 107/69; PULSE 62; RESP 16; TEMP 35.7; O2SAT 100
--- NOTE | 2023-02-13 08:07 | WPDANESPN ---
Anes - Prog Note Post-Op Date/Time: 02/13/23 08:07 Vital Signs: Last Vital Signs Temp 35.7 C L 02/13/23 07:59 Pulse 62 02/13/23 07:59 Resp 16 02/13/23 07:59 BP 107/69 02/13/23 07:59 Pulse Ox 100 02/13/23 07:59 O2 Del Method Room Air 02/12/23 13:26 O2 Flow Rate 2 02/12/23 10:50 Pain Score (VAS): 0 I/O: Intake & Output 02/12/23 02/13/23 02/13/23 23:59 07:59 15:59 Intake Total 170 550 Balance 170 550 Laboratory Tests 02/13/23 06:41 02/13/23 06:41 02/13/23 06:41 WBC 10.1 H RBC 3.20 L Hgb 9.6 L D Hct 29.9 L MCV 93.4 MCH 30.0 MCHC 32.1 RDW 14.5 Plt Count 230 MPV 10.7 H Immature Gran % (Auto) 0.3 Neut % (Auto) 69.6 Lymph % (Auto) 17.0 L [place] % (Auto) 12.8 H Eos % (Auto) 0.1 Baso % (Auto) 0.2 Lymph # (Auto) 1.72 [place] # (Auto) 1.3 H Eos # (Auto) 0.0 Baso # (Auto) 0.0 Abs Immat Gran (auto) 0.03 Absolute Neuts (auto) 7.1 H Absolute Nucleated RBC 0.0 Nucleated RBC % 0.0 Sodium 133 L Potassium 4.7 Chloride 99 Carbon Dioxide 31 H Anion Gap 3 L BUN 13 Creatinine 0.60 L Estim Creat Clear Calc 92 Estimated GFR > 60 Glucose 102 Calcium 8.8 Magnesium 1.8 TSH (Reflex) 0.656 Patient Feedback: Patient satisfied with anesthetic care.
[2023-02-13] MEDS: SENNA/DOCUSATE SODIUM TABLET 2 TAB PO (08:11)
[2023-02-13] MEDS: LEVOTHYROXINE SODIUM 88 MCG TABLET PO (08:11)
[2023-02-13] MEDS: CELECOXIB 200 MG CAPSULE PO (08:11)
[2023-02-13] MEDS: polyethylene glycoL 3350 17 GM POWD.PACK PO (08:11)
[2023-02-13] MEDS: traMADol HCL (*CRX) 50 MG TABLET PO (08:11)
--- NOTE | 2023-02-13 09:21 | PM.IMPN ---
Progress Note: A&P Assessment and Plan (1) Osteoarthritis of left knee: Code(s): M17.12 - Unilateral primary osteoarthritis, left knee Status: Acute Assessment and Plan: Postoperative day 1 status post left total knee arthroplasty. Wound care, pain control, DVT prophylaxis deferred to Dr. Casas. Labs are stable Pain is controlled Up in the bathroom at time of visit (2) Hypothyroidism: Code(s): E03.9 - Hypothyroidism, unspecified Status: Acute Assessment and Plan: Continue levothyroxine TSH Stable at 0.656 Time Spent With Patient Time: 30 minutes Time with patient: 25 - 35 minutes Subjective Date/time seen: 02/13/23 09:21 Interval history: Patient is a 57-year-old female with a past medical history of arthritis and hypothyroidism who presented for an elective left knee replacement related to ongoing pain. Currently patient does still experience some pain which she rates a__. She has been doing well with PT and OT. Labs and vital signs are stable at this time. Patient does appear to be stable for discharge when Ortho surgery deems appropriate. Currently patient denies any chest pain, shortness a breath, nausea, vomiting, diarrhea constipation. Review of Systems Review of Systems: All systems reviewed & are unremarkable except as noted in HPI and below Objective Data Vital Signs Vital Signs: Vital Signs - 24 hr 02/12/23 09:31 02/12/23 09:46 02/12/23 10:01 Temperature 97.7 F Pulse Rate 72 69 65 Respiratory Rate 20 7 L 17 Blood Pressure 103/74 128/90 136/92 H Pulse Oximetry 100 100 100 Oxygen Delivery Simple Face Mask Simple Face Mask Nasal Cannula Oxygen Flow Rate 10 10 4 02/12/23 10:15 02/12/23 10:30 02/12/23 10:45 Temperature 96.4 F L Pulse Rate 63 72 68 Respiratory Rate 13 20 18 Blood Pressure 133/80 112/76 109/95 H Pulse Oximetry 100 100 99 Oxygen Delivery Nasal Cannula Nasal Cannula Oxygen Flow Rate 2 2 02/12/23 11:00 02/12/23 11:30 02/12/23 10:50 Temperature 96.3 F L 96 F L Pulse Rate 64 63 Respiratory Rate 16 16 Blood Pressure 114/77 109/70 Pulse Oximetry 98 98 99 Oxygen Delivery Nasal Cannula Oxygen Flow Rate 2 02/12/23 12:30 02/12/23 13:26 02/12/23 16:00 Temperature 96.1 F L 96.5 F L Pulse Rate 68 68 Respiratory Rate 18 16 Blood Pressure 118/87 100/69 Pulse Oximetry 100 100 Oxygen Delivery Room Air Oxygen Flow Rate 02/12/23 20:00 02/13/23 00:00 02/13/23 00:20 Temperature 97.4 F L 97.1 F L 96.7 F L Pulse Rate 63 65 60 Respiratory Rate 16 16 16 Blood Pressure 110/72 113/67 108/63 Pulse Oximetry 96 99 99 Oxygen Delivery Oxygen Flow Rate 02/13/23 04:20 02/13/23 07:59 Temperature 96.7 F L 96.3 F L Pulse Rate 60 62 Respiratory Rate 16 16 Blood Pressure 108/63 107/69 Pulse Oximetry 99 100 Oxygen Delivery Oxygen Flow Rate Intake/Output Intake/Output: Intake & Output 02/10/23 02/11/23 02/12/23 02/13/23 23:59 23:59 23:59 23:59 Intake Total 1060 790 Balance 1060 790 Meds/Results Medications: Active Medications Generic Name Dose Route Start Last Admin Trade Name Freq PRN Reason Stop Dose Admin Hydrocodone Bitart/Acetaminophen 1 tab 02/12/23 10:35 02/13/23 06:21 Hydrocodone/Acetaminophen (*Crx) 7.5-325 Mg Tablet PO 1 tab Q6H PRN Administration Pain Rated 7-10 Hydrocodone Bitart/Acetaminophen 1 tab 02/12/23 10:35 Hydrocodone/Acetaminophen (*Crx) 5-325 Mg Tablet PO Q4H PRN Pain Rated 4-6 Celecoxib 200 mg 02/13/23 09:00 02/13/23 08:11 Celecoxib 200 Mg Capsule PO 200 mg DAILY CJ Administration Cyclobenzaprine HCl 10 mg 02/12/23 10:35 02/12/23 22:58 Cyclobenzaprine Hcl 10 Mg Tablet PO 10 mg Q8H PRN Administration Spasms Diphenhydramine HCl 25 mg 02/12/23 10:35 Diphenhydramine Hcl Inj 50 Mg/Ml Vial IV PUSH Q6H PRN Itching Levothyroxine Sodium 88 mcg 02/13/23 09:00 02/13/23
[2023-02-13] MEDS: CYCLOBENZAPRINE HCL 10 MG TABLET PO (11:01)
--- NOTE | 2023-02-13 11:34 | PM.PNORT ---
Progress Note: A&P Assessment and Plan (1) Osteoarthritis of left knee: Code(s): M17.12 - Unilateral primary osteoarthritis, left knee Status: Acute Assessment and Plan: Patient is status post total knee arthroplasty left for knee osteoarthritis. She is doing well postoperatively I think we can dismiss her home today. Dismissed medication hydrocodone doxycycline Xarelto. Follow-up 2 weeks for sutures. (2) History of knee replacement procedure of left knee: Code(s): Z96.652 - Presence of left artificial knee joint Status: Acute Subjective Subjective Date/Time Seen: 02/13/23 11:34 Post Op day: 1 Principal diagnosis: Postop day 1 status post total Left Total Knee Arthroplasty for OA Interval history: Patient is 1 day status post total knee arthroplasty left. Pain is controlled she is wiggling her toes motion 0 to 160? today. Review of Systems Musculoskeletal: Musculoskeletal: Reports arthralgias and Reports joint swelling Exam Narrative: Dressing is intact. Neurologically she is intact. She typically ambulates with motion from 0 to 106?. Objective Data Vital Signs Vital Signs: Vital Signs - 24 hr 02/12/23 12:30 02/12/23 13:26 02/12/23 16:00 Temperature 96.1 F L 96.5 F L Pulse Rate 68 68 Respiratory Rate 18 16 Blood Pressure 118/87 100/69 Pulse Oximetry 100 100 Oxygen Delivery Room Air 02/12/23 20:00 02/13/23 00:00 02/13/23 00:20 Temperature 97.4 F L 97.1 F L 96.7 F L Pulse Rate 63 65 60 Respiratory Rate 16 16 16 Blood Pressure 110/72 113/67 108/63 Pulse Oximetry 96 99 99 Oxygen Delivery 02/13/23 04:20 02/13/23 07:59 02/13/23 08:00 Temperature 96.7 F L 96.3 F L Pulse Rate 60 62 Respiratory Rate 16 16 Blood Pressure 108/63 107/69 Pulse Oximetry 99 100 Oxygen Delivery Room Air Intake/Output Intake/Output: Intake & Output 02/10/23 02/11/23 02/12/23 02/13/23 23:59 23:59 23:59 23:59 Intake Total 1060 790 Balance 1060 790 Meds/Results Medications: Active Medications Generic Name Dose Route Start Last Admin Trade Name Freq PRN Reason Stop Dose Admin Hydrocodone Bitart/Acetaminophen 1 tab 02/12/23 10:35 02/13/23 06:21 Hydrocodone/Acetaminophen (*Crx) 7.5-325 Mg Tablet PO 1 tab Q6H PRN Administration Pain Rated 7-10 Hydrocodone Bitart/Acetaminophen 1 tab 02/12/23 10:35 Hydrocodone/Acetaminophen (*Crx) 5-325 Mg Tablet PO Q4H PRN Pain Rated 4-6 Celecoxib 200 mg 02/13/23 09:00 02/13/23 08:11 Celecoxib 200 Mg Capsule PO 200 mg DAILY CJ Administration Cyclobenzaprine HCl 10 mg 02/12/23 10:35 02/13/23 11:01 Cyclobenzaprine Hcl 10 Mg Tablet PO 10 mg Q8H PRN Administration Spasms Diphenhydramine HCl 25 mg 02/12/23 10:35 Diphenhydramine Hcl Inj 50 Mg/Ml Vial IV PUSH Q6H PRN Itching Levothyroxine Sodium 88 mcg 02/13/23 09:00 02/13/23 08:11 Levothyroxine Sodium 88 Mcg Tablet PO 88 mcg DAILY CJ Administration Naloxone HCl 0.1 mg 02/12/23 10:35 Naloxone Hcl 0.4 Mg/Ml Vial IV PUSH Q2M PRN Opiate Reversal Ondansetron HCl 4 mg 02/12/23 10:35 Ondansetron Inj 4 Mg/2 Ml Vial IV PUSH Q4H PRN Nausea And Vomiting Polyethylene Glycol 17 gm 02/13/23 09:00 02/13/23 08:11 Polyethylene Glycol 3350 17 Gm Powd.Pack PO 17 gm QAM CJ Administration Rivaroxaban 10 mg 02/12/23 17:00 02/12/23 16:25 Rivaroxaban 10 Mg Tablet PO 02/23/23 17:01 10 mg DAILY@17 CJ Administration Senna/Docusate Sodium 2 tab 02/12/23 17:00 02/13/23 08:11 Senna/Docusate Sodium Tablet PO 2 tab BID CJ Administration Tramadol HCl 50 mg 02/12/23 10:35 02/13/23 08:11 Tramadol Hcl (*Crx) 50 Mg Tablet PO 50 mg Q4H PRN Administration Pain Rated 1-3 Radiology Results: ITS Impressions Knee X-Ray 02/12/23 10:24 IMPRESSION: 1. Total left knee arthroplasty in near-anatomic alignment. Labs Labs:
--- NOTE | 2023-02-13 11:37 | PM.DS ---
DS: Admitting Diagnosis Discharge Date 02/13/23 Admitting Diagnosis Left knee osteoarthritis DS: Discharge Diagnosis Discharge Diagnosis Plan Left knee osteoarthritis status post total knee arthroplasty left DS: Summary Hospital Course Hospital Course: Patient underwent total knee arthroplasty on the left. She has done well postoperatively the pain is controlled at this point. She can be dismissed. Follow up 10 to 14 days for sutures out. If she has any changes or problems she is instructed to call. Status at Discharge Functional status at discharge: uses cane/walker Time Spent with Patient Time attestation: Total time spent providing and/or coordinating discharge services: Exam Narrative: On exam she has motion of her knee from 0 to 160? which she can wiggle her toes and walk with a walker. Eyes: General: appearance normal, both eyes and all related structures Neck: Neck: supple Resp: Effort & Inspection: normal respiratory effort Cardio: Rate: regular rate Rhythm: regular rhythm DS: Data Data Completed and Pending Labs on day of discharge: Labs from last 24 hours 02/13/23 06:41 WBC 10.1 H RBC 3.20 L Hgb 9.6 L D Hct 29.9 L MCV 93.4 MCH 30.0 MCHC 32.1 RDW 14.5 Plt Count 230 MPV 10.7 H Immature Gran % (Auto) 0.3 Neut % (Auto) 69.6 Lymph % (Auto) 17.0 L [place] % (Auto) 12.8 H Eos % (Auto) 0.1 Baso % (Auto) 0.2 Lymph # (Auto) 1.72 [place] # (Auto) 1.3 H Eos # (Auto) 0.0 Baso # (Auto) 0.0 Abs Immat Gran (auto) 0.03 Absolute Neuts (auto) 7.1 H Absolute Nucleated RBC 0.0 Nucleated RBC % 0.0 Sodium 133 L Potassium 4.7 Chloride 99 Carbon Dioxide 31 H Anion Gap 3 L BUN 13 Creatinine 0.60 L Estim Creat Clear Calc 92 Estimated GFR > 60 Glucose 102 Calcium 8.8 Magnesium 1.8 TSH (Reflex) 0.656 Discharge Plan Discharge Patient Disposition: Home, Self-Care Discharge Instructions: Dr. Bert Casas M.D [address] [place] [id number] POST-OPERATIVE DISCHARGE INSTRUCTIONS TOTAL KNEE ARTHROPLASTY 1. When resting, do not rest in the chair.When resting, lie on your back, with back flat on the couch or bed, with leg elevated above heart to minimize swelling. You may put a pillow under your head. . Significant swelling could indicate a blood clot and if this occurs call the office (or go to the ER) to have a venous ultrasound. Therefore, do not rest in a chair. 2. At least five times a day spend several minutes stretching your knee into flexion while sitting in the chair and also stretching your knee out straight The abilities to bend your knee fulling and straighten your knee fully are two most important knee functions to focus on during your recovery. 3. It is ok to sit in chair to eat, use the toilet and receive a guest and to do your stretching exercises, but, sitting in a chair will cause your leg to swell. Therefore, avoid additional time sitting in the chair. and don't rest in the chair. 4. Wound Care: Nursing will give you an additional Mepilex dressing at the time of discharge. Patient to remove the dressing and apply a new Mepilex dressing at home 7 days after surgery and leave the dressing on until seen in office. 5. May shower with a Mepilex dressing in place.The water will run off the dressing. 6. Unless you are told otherwise, you may put full weight on your operated leg. Use a walker for balance and practice walking as normally as you can, ideally for a few minutes every hour while you are awake. 7. I would advise against putting ice packs on your knee incision. Ice constricts blood flow which can impar healing of the knee incision. IMPORTANT: Remember not to sit in the chair for more than 30 minutes at a time. As a rule, during the first 14 days after surgery, only sit in the chair to work on the chair knee bending stretch exercise, for meals or for use of the restroom. Sitting in the chair pro
== END 2023-02-13 13:15 | disposition home or self-care (01) ==
LOC: ANHSURGERY 06:08 → ANH3MEDSUR 10:37
PROVIDERS: Physician Assistant; PCP Physician Assistant; Visit Provider Orthopaedic Surgery
PROC: (CPT 27447; principal; 2023-02-12 07:30)
DX: M17.12 Unilateral primary osteoarthritis, left knee (principal); G89.18 Other acute postprocedural pain; E03.9 Hypothyroidism, unspecified; E66.9 Obesity, unspecified; Z68.28 Body mass index [BMI] 28.0-28.9, adult
CPT/HCPCS: 27447; 64447; 36415; 73560; 80048; 80307; 82040; 82565; 82947; 83036; 83735; 84443; 85025; 86850; 86900; 86901; 87081; 93005; 97110; 97116; 97161; 97165; 97530; 97535; A9270; C1713; C1776; J0171; J0690; J1100; J1170; J1596; J1885; J2250; J2270; J2405; J2704; J2795; J3010; J3370; J7120

== ENCOUNTER 2023-04-10 11:00 | Outpatient (RCR) | payer OTHER, SELFPAY ==
--- NOTE | 2023-02-19 10:46 | OPREHPOC ---
Outpatient Therapy Plan of Care This is a Multidisciplinary Plan of Care that may contain components documented by all disciplines (PT, OT, and ST.) PT Problem 1 PT Problem #1 Knowledge Deficit PT Goal 1 Goal 1* indep with HEP 2* correct use of assistive device PT Problem 2 PT Problem #2 Pain PT Goal 1 Goal 1* decrease pain L knee to 4/10 at worst PT Problem 3 PT Problem #3 Impaired Range of Motion PT Goal 1 Goal increase L knee ROM for improved transfer and gait skills sitting active: 1* extension 0' 2* flexion 110' PT Problem 4 PT Problem #4 Impaired Strength PT Goal 1 Goal improved strength L LE to improve gait and mobility skills 1* mat exercises with 3# ankle wt x 15 reps 2* single leg standing 10 seconds with good stability 3* sit/stand without use of UE x 5 reps PT Problem 5 PT Problem #5 Impaired Functional Mobil PT Goal 1 Goal 1* 2 minute walking test distance with cane 350' 2* 5 reps sit/stand time of 15 seconds 3* up/down 12 steps with use of one hand railing, alternating step patter 4* on/off floor with use of UE on mat, indep
--- NOTE | 2023-02-19 10:46 | PTOPEVAL1 ---
Assessment and note entered by Nimo Alexander, PT Evaluation Information Assessment Status Evaluation Diagnosis s/p L TKR Onset 02-12-23 Subjective Information had TKR on 02-12-23; at home, have been doing OK, using cane sometimes for walking, have been up the stairs to second floor of home; have been doing exercises, ice and elevation of leg; taking pain meds exery 4 hours Reported Pain Level Pain Score Self Report Additional Pain Score Comments pain range in the past few days 0-9/10; tight knee; able to sleep OK; taking pain meds every 4 hours; have taken shower; Assessment PT Clinical Summary Rosalie is s/p L TKR. Prior to surgery, walking 4-5 miles/day and was active, did not use assistive device. Was not working prior to surgery. assist at home PRN, has been doing exercises and walking as tolerated. With the PT evaluation, her L knee active ROM is (-20') to 95' and passive extension in supine (-10') decreased strength of L knee; 2 minute walking test distance of 225'; 5 reps sit/stand time of 22 seconds with use of 1 UE; use of wheeled walker for ambulation. Skilled PT services are indicated for modalities to decrease pain; therapeutic exercise to increase ROM and strength, gait and balance retraining, with education for HEP and lesser assistive device. Plan of Care Interventions Electrical Stimulation,Gait Training,Hot Pack/Cold Pack,Manual Therapy,Neuro Re-education,Patient/ Caregiver Education,Therapeutic Activities, Therapeutic Exercise,Other Other Interventions VENICE scanlon PT Services Indicated Yes Treatment Frequency and 2x/wk for 4 weeks Duration These treatments will address the objective and functional deficits as defined above. The patient will be advanced safely and appropriately in order for the patient to progress towards his/her prior level of function. Additional exercises will be introduced and as well as a comprehensive home exercise program upon discharge, if needed, ?to ensure carryover of functional gains achieved in the clinic. This treatment plan has been reviewed and agreement upon by the patient.
--- NOTE | 2023-03-19 11:57 | OPREHPOC ---
Outpatient Therapy Plan of Care This is a Multidisciplinary Plan of Care that may contain components documented by all disciplines (PT, OT, and ST.) PT Problem 1 PT Problem #1 Knowledge Deficit PT Goal 1 Goal 1* indep with HEP 2* correct use of assistive device Progress Met Comment 03-19-23 progress met goals continue towards goal 1 PT Problem 2 PT Problem #2 Pain PT Goal 1 Goal 1* decrease pain L knee to 4/10 at worst Progress Met Comment 03-19-23 progress met goal NEW GOAL: 1* pt report pain of 3/10 at worst PT Problem 3 PT Problem #3 Impaired Range of Motion PT Goal 1 Goal increase L knee ROM for improved transfer and gait skills sitting active: 1* extension 0' 2* flexion 110' Progress Not Met Comment 03-19-23 progress goals not met; continue towards goals PT Problem 4 PT Problem #4 Impaired Strength PT Goal 1 Goal improved strength L LE to improve gait and mobility skills 1* mat exercises with 3# ankle wt x 15 reps 2* single leg standing 10 seconds with good stability 3* sit/stand without use of UE x 5 reps Progress Partially Met Comment 03-19-23 progress met goals 1,3 NEW GOALS 1* single leg standing 6 seconds with good stability PT Problem 5 PT Problem #5 Impaired Functional Mobil PT Goal 1 Goal 1* 2 minute walking test distance with cane 350' 2* 5 reps sit/stand time of 15 seconds 3* up/down 12 steps with use of one hand railing,
--- NOTE | 2023-03-19 11:57 | PTOPPROG ---
Assessment and note entered by Nimo Alexander, PT Progress Information Assessment Status Progress Diagnosis s/p L TKR Onset 02-12-23 Subjective Information feel like have hit a wall, knee is not getting any better with motions; was able to walk in the park last week 5 miles; is doing everything she usually does at home, no longer hurts to put her sock and shoe on; is still doing her exercises at home; problems getting L leg in/out car; is not using the cane anymore; PAIN: range in the past week 0-4/10; with stretching by therapist, increase to 8/10; uncomfortable feeling in knee, hurts; take tylenol and ibuprofen; flexeril and celebrex standing/activity tolerance with home tasks 2 hours; using ice PRN for knee pain. Assessment PT Clinical Summary Rosalie has received 9 PT sessions. She states that at her last dr appt, he stated he would do a manipulation if she does not have better ROM. She is asking a lot of questions about the manipulation and wants to know if it will decrease her knee pain. L knee AROM in sitting: (-10') to 105' with passive stretch (-10') to 115'. Compared to the initial evaluation: pain decreased from 0-9/10 to 0-4/10; increased strength and ROM of L knee, but single leg standing tolerance of 3 seconds and unsteady; gait without assistive device, with decreased motor control of L LE due to previous brain injury and on stairs, catches her L toe with alternating step pattern; improved with 2 minute walking test distance to 450'; education for HEP and gait pattern. The goals were partially met. Continue PT treatment, to further increase her knee ROM and strength. Plan of Care Interventions Electrical Stimulation,Gait Training,Hot Pack/Cold Pack,Manual Therapy,Neuro Re-education,Patient/ Caregiver Educati,Therapeutic Activities, Therapeutic Exercise,Other Other Interventions VENICE scanlon
--- NOTE | 2023-04-10 11:38 | PTOPDC ---
Assessment and note entered by Nimo Alexander, PT Discharge Information Assessment Status Discharge Diagnosis s/p L TKR Onset 02-12-23 Subjective Information have family help with carrying laundry up/down the stairs; getting into the car- knee hurts a little ; problems gardening and getting onto ground; doing the knee exercises, walking more for fitness ~ 1 & 1/2 mile; have been doing yard work, lifting bricks, carrying things; have been discharged from Dr Son' care; agree to discharge from PT services. EDUCATION: correct technique for getting in/out car; she was standing on L foot and pivoting on L to get into car, with R leg into car first; with gardening use of small gardening stool with wheels, sit on ground on her butt and scoot around on floor; Reported Pain Level Pain Score Self Report Additional Pain Score Comments pain range in past week: 0-3/10; increase pain: overdoing activity; twist knee when standing decrease pain: rest/sit, ibuprofen 1-2x/day, ice with sleeping, awaken from knee pain 0-2x/night, and problems getting knee comfortable; usually sleep on side, but cannot do anymore, have been on her back; discussed sleeping positions continues to have swelling in knee Assessment PT Clinical Summary Rosalie has received 15 PT sessions. Compared to the last progress report she has improved with: pain rating at worst from 4 to 3/ 10; continues to have problems getting knee comfortable in bed with sleeping and pain awakens her 0-2x/night; is walking without an assistive device; on stairs, has L toe catch 2x on 8 steps; education completed for HEP and correct gait pattern. L Knee AROM in sitting (-10') to 118'; extension passive stretch in supine (-5'); The goals were partially achieved. Discharge PT. She is to continue with her home exercise program and progressing activity level as tolerated. Plan of Care PT Services Indicated No
== END 2023-04-10 13:41 | disposition home or self-care (01) ==
LOC: ANHPT 11:00
PROVIDERS: PCP Physician Assistant; Visit Provider Orthopaedic Surgery
DX: Z47.1 Aftercare following joint replacement surgery (principal); Z96.652 Presence of left artificial knee joint
CPT/HCPCS: 97110; 97116; 97140; 97161; 97530

== ENCOUNTER 2024-09-05 10:06 | Outpatient (CLI) | payer OTHER, SELFPAY ==
--- NOTE | ~2024-09-05 | US_ITS ---
US soft tissue abdomen 09/05/2024 10:30 Indication: Generalized intra-abdominal and pelvic swelling Procedure: Soft tissue ultrasound mid-lower abdomen Comparison: Real-time grayscale ultrasound imaging was performed of the area of palpable concern in m id-lower abdomen Findings: In the area palpable concern there is a 1.4 cm transverse defect in the knee fascia consist ent with focal breech of the fascia or defect. Within this defect there is hypoechoic soft tissue con tent. No evidence of bowel loops are peristalsis within the defect. Surrounding subcutaneous tissues are unremarkable and no fluid collection is identified. Impression: 1: Focal fascial defect in mid lower abdominal wall measuring 1.4 cm in transverse dimension, contain ing hypoechoic soft tissue without definite herniated bowel. Findings may represent an incipient or s mall ventral hernia with preperitoneal fat protrusion without definite bowel involvement. Clinically correlate for symptoms of pain, bulging or increased with Valsalva maneuver. Consider surgical consul tation. Dedicated abdominal wall CT may be considered for further evaluation. Reviewed, dictated and finalized at location A. Impression: 1: Focal fascial defect in mid lower abdominal wall measuring 1.4 cm in transve rse dimension, containing hypoechoic soft tissue without definite herniated bow el. Findings may represent an incipient or small ventral hernia with preperiton eal fat protrusion without definite bowel involvement. Clinically correlate for symptoms of pain, bulging or increased with Valsalva maneuver. Consider surgic al consultation. Dedicated abdominal wall CT may be considered for further eval uation.
== END 2024-09-05 10:07 | disposition home or self-care (01) ==
PROVIDERS: PCP Nurse Practitioner Family; Visit Provider Nurse Practitioner Family
DX: K43.9 Ventral hernia without obstruction or gangrene (principal); R19.07 Generalized intra-abdominal and pelvic swelling, mass and lump
CPT/HCPCS: 76705

== ENCOUNTER 2024-12-04 08:34 | Outpatient (CLI) | payer OTHER, SELFPAY ==
--- OUTSIDE RECORDS SUMMARY | 2024-12-04 08:56 | XMS_ITS | Clinical Summary ---
Author Organization [facility] Address [address] [place] [address] Care Team Providers Care Patient Admitting Clerk Name Role Phone Rogelio Nascimentoangel Billingsley DO Primary Care Provider Source Comments [facility],non-owned Affiliates and Associated Physician Practices is amultiple site organization consisting of ambulatory clinics and hospital sitesin [place], [place], [place] and [place]. This disclosure is being madepursuant to the Care Everywhere program and may not contain all information available regarding this patient. Last updated 17.[facility] Allergies Active Allergy Reactions Criticality Noted Date Comments Ampicillin 04/14/2011 Medications * Be aware that medications may not be up to date on this document. Alwaysverify current medications with the patient. 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 [employer] Gender Identity Not on file Sexual Orientation Not on file Plan of Treatment Health Maintenance Due Date Last Done Comments COLOGUARD (AGES 45-75) - COL ON CA SCREENING 1967 COLON MONITORING 1967 COLONOSCOPY - COLON CA SCREENING 1967 CT COLONOGRAPHY - COLON CA SCREENING 1967 Colorectal Cancer Screening 1967 FIT - COLON CA SCREENING 1967 FLEX SIG - COLON CA SCREENING 1967 LIPID TESTING 1967 MAMMOGRAM 1967 HIV SCREENING 08/01/1982 HEPATITIS C SCREENING 07/28/1985 DTAP/TDAP/TD VACCINES (1 - Tdap) 08/01/1986 HEPATITIS B VACCINE (1 of 3 - 19+ 3-dose series) 08/01/1986 PAP SMEAR 08/01/1988 PNEUMOCOCCAL VACCINE 50+ (1 of 1 - PCV) 08/01/2017 ZOSTER VACCINE (1 of 2) 08/01/2017 DEPRESSION SCREENING 02/06/2024 COVID-19 VACCINE (1 - 2023-2 5 season) 2024 INFLUENZA VACCINE (#1) 2024 HIB VACCINE Aged Out No longer eligi ble based on patient's age to complete this topic HPV VACCINE Aged Out No longer eligi ble based on patient's age to complete this topic MENINGOCOCCAL (Group B) VACC INE SHARED DECISION-MAKING Aged Out No longer eligibl e based on patient's age to complete this topic MENINGOCOCCAL GROUPS A/C/Y/W VACCINE Aged Out No longer eligible b ased on patient's age to complete this topic Insurance [facility] [place] [id number] [facility] Care Teams Patient Admitting Clerk Relationship Specialty Start Date End Date Melecio Nascimento DO [address] [facility] [address] [place] [address] PCP - General 01/07/10
--- OUTSIDE RECORDS SUMMARY | 2024-12-04 08:56 | XMS_ITS | Data Portability ---
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 We did talk about anti-inflammatory medication she wanted proceed we will get her prescription for Celebrex 200 mg daily she also wanted to do a shot of cortisone at my recommendation. Therefore under sterile conditions I injected the patient's left knee joint in the office with 4 cc 0.5% ropivacaine and 20 mg of Kenalog. Patient tolerated procedure well. We will also start a course of physical therapy for strengthening and range of motion modalities as well. I will see her back in 6 weeks to see what impact treatment has had. She voiced understanding agrees above plan she states she is also working on some weight loss this may help as well. She will call for any further problems difficulties or questions. [email or web address] Not available 07/11/2022 15:43:16 08/22/2022 08/22/2022 Patient returns knee pain left. She remains symptomatic as catching locking and pain and mechanical symptoms now medially she has a positive Brent's pain with palpation manipulation she has failed conservative treatment today I think it is time to get an MRI to rule out meniscal pathology if she has mechanical catching. I will see her back after this is done and reassess at that point discussed. [email or web address] Not available 08/22/2022 17:04:17 08/29/2022 08/29/2022 Patient returns knee pain left. She has mechanical catching in the knee but the MRI does not show an obvious tear lot of her pain is anterolateral and pain to palpation manipulation the MRI suggested maybe some for small fraying medially but no big tear she does have a lot of fluid in the knee I think she has got some patellofemoral irritability and inflammation in the knee. She does certainly has some early degenerative change. I reinjected with 20 mg Kenalog 4 cc 1% lidocaine. For prescription drug management will try prednisone taper and see if this helps with pain and inflammation. We will try a course of therapy to see if this helps. I reviewed the MRI pictures and reports with the patient and agree with the findings. [email or web address] Not available 08/29/2022 15:40:32 Plan of Treatment Reminders Order Date Submit Date Provider Last Modified By Organization Details Last Modified Time Details Appointments None recorded. Lab None recorded. Referral physical therapist referral - please contact patient to schedule 2022 023 [email or web address] [place], [address] [place] [address], [place], [address], 3 16:05:11 Procedures injection/a spiration joint/bursa (PROC) - in office procedure, administere d by provider 2022 023 [email or web address] In-Office Order, Internal Use Only DO Not Attach Compendium DO Not Attach Compendium, Do Not Delete/merge, [id number] 3 15:34:34 injection/a spiration joint/bursa (PROC) - in office procedure, administere d by provider 2022 023 [email or web address] In-Office Order, Internal Use Only DO Not Attach Compendium DO Not Attach Compendium, Do Not Delete/merge, [id number] 3 15:36:09 Surgeries None recorded. Imaging MRI, knee, w/o contrast 2022 023 [facility], [address], [place], [address], 3 14:20:35 XR, knee 2022 023 [email or web address] [facility] [place], [address], [place], [address], 3 15:55:53 Medication Orders prednisone 10 mg tablets in a dose pack [address] [facility], [address] [facility], [place], [place], [id number], 3 15:40:44 Kenalog 10 mg/mL suspension for injection [address] [facility]32, [address] [place], [place], [id number], 3 15:40:44 ropivacaine (PF) 5 mg/mL (0.5 %) injection solution 2022 023 [address] [facility], [address] [place], [place], [id number], 3 15:40:44 Kenalog 10 mg/mL suspension for injection 2022 023 [address], [address] [place], [place], [id number], 3 15:45:08 ropivacaine (PF) 5 mg/mL (0.5 %) injection solution 2022 023 [address], [address] [place], [place], [id number], 3 15:45:08 celecoxib 200 mg capsule 2022 023 [address] [facility], [address] [place], [place], [id number], 3 15:45:08 Patient TargetsNo targets recorded. Patient InstructionsNo instructions recorded. Reason for Referral Physical Therapist Referral for Pain of left knee joint please contact patient to schedule Referring Physician: Dyllan Sellers, Orthopedic Surgery, Encounter Date: 07/11/2022 Results Created Date Observation Date Name Description Value Unit Range Abnormal Flag Note LastModifiedBy Organization Detail LastModifiedTime 07/12/19 23 XR, knee No observ ation record ed. [email or web address] [facility] [place] [address] [facility] [address], [place], [address], 07/11/2022 15:44:33 08/25/19 23 MRI knee lt wo [facility] [address] [place] [address] Patien t Name: RANULFO GUIDRY Access ion #: [id number] Sex: F : 1965 Locati on: IND Attend ing Physic maranda: Christian lobato Physic maranda: TAMAR AVILA Exam Date: 023 11:47 AM Exam Name: MRI KNEE LT WO Admitt ing Diagno sis(es ): RADIOL OGY REPORT - FINAL EXAM: MRI KNEE LT WO HISTOR Y: Pain 57-yea r-old female with left knee pain, veenai scott lobato g, no known injury . COMPAR JAVIER: Radiog raphs dated 2022. TECHNI QUE: Multip lanar multis equenc e noncon trast MR images of the left knee were perfor med. FINDIN GS: No fractu re or bone marrow edema are identi fied throug hout the left knee. There are low-gr rick partia l tears of the proxim al portio ns of the MCL and LCL. There may be a low-gr rick chroni c partia l tear of the PCL at the femora l attach ment versus artifa ctual appear ance (image s 6-7, series 5; images 10-11, Page 1 of 3 [facility] t Name: RANULFO GUIDRY Access ion #: [id number] Sex: F : 1965 Exam Date: 023 11:47 AM Exam Name: MRI KNEE LT WO Admitt ing Diagno sis(es ): series 7; image 13, series 9). The ACL, melissa ceps tendon , and poplit eus tendon are intact . There is thicke arash of the proxim al patell ar tendon at the patell ar origin . There may be frayin g or small tear of the inner margin of the diversified crops supervisor ior horn of the medial menisc us. No eviden ce of latera l menisc al tear. No signif icant latera l patell ar sublux ation. There are tricom partme ntal margin al osteop hytes. There is mild thinni ng of the articu lar cartil age in the medial compar tment and modera te thinni ng of the articu lar cartil age of the latera l patell ar facet. No signif icant chondr omalac ia of the latera l compar tment. There is a large joint effusi on. There is a promin ent suprap atella r plica or synovi al fold. No signif icant poplit eal fossa cyst. IMPRES STEFFEN: 1. Low-gr rick partia l tears of the proxim al portio ns of the MCL and LCL. There is questi on of a partia l tear of the proxim al PCL versus artifa ctual appear ance. The ACL is intact . 2. Possib le frayin g or small tear of the inner margin of the diversified crops supervisor ior horn of the medial menisc us. The latera l menisc us is intact . 3. Proxim al patell ar tendin osis. 4. Tricom partme ntal degene rative change s of the left knee with interm ediate grade chondr omalac ia patell a, low-gr rick chondr omalac ia of the medial compar tment, and small tricom partme ntal margin al osteop hytes. 5. Large left knee effusi on. Create d and electr onical ly signed by: Levi padilla MD Signed Date: 023 4:53 PM (CT) Page 2 of 3 [facility] Jaja dyson Name: RANULOF GUIDRY Access ion #: [id number] Sex: F : 1965 Exam Date: 023 11:47 AM Exam Name: MRI KNEE LT WO Admitt ing Diagno sis(es ): Dictat ed by: Levi padilla MD DD: 023 4:53 PM (CT) DT: 023 4:53 PM (CT) Page 3 of [address] (Imaging) [address] [place], [address], 08/24/2022 19:21:05 08/26/19 23 08/24/2022 MRI, knee, w/o contr ast No observ ation record ed. [email or web address] [facility] [address], [place], [address], 08/25/2022 14:20:35 Result Notes None recorded. Problems Name Problem SNOMED Code Status Onset Date Resolution Date Notes Provider Name and Address Organization Details Recorded Time Disorder of shoulder 559154361 Active Not Available [facility] 3 13:12:38 Shoulder joint pain 657765881 Active Not Available [facility] 3 13:12:38 Low back pain 003100712 Active Not Available [facility] 3 13:12:38 Pain of right knee joint 3949948587033 00 Active 2022 ALANNAH Suggs null, [place] [facility] 3 14:48:01 Pain of left knee joint 9001284891814 07 Active 2022 Mildred Kirkland null, [place] [facility] 3 15:32:05 Osteoarthr itis of left knee joint 1793266787839 09 Active 2022 NICK Randhawa [address] [facility], [place], [address] , [employer] [facility] [employer] [facility] 3 15:43:24 Tear of medial meniscus of knee 701887214 Active 2022 Tamar Casas MD [address] [facility], [facility] [address], [place], [address] , [facility] Tucker Blair [facility] [employer] [facility] 3 17:04:45 Tear of medial meniscus of knee 572614960 Active 2022 Tamar Casas MD [address] [facility], [facility] [address], [place], [address] , [facility] [employer] [facility] 3 17:04:57 Problem Notes None recorded. Procedures Surgical History Date Name Laterality Status Provider Name and Address Organization Details Recorded Time 08/30/19 Ortho - Cortisone Injection completed Tamar Casas MD [address] [facility], [facility] [address], [place], [address], [employer] [facility] [employer] [facility] 08/29/2022 15:38:18 lumbar spinal fusion completed ALANNAH Suggs [facility] [employer] [facility] 07/11/2022 14:47:15 Hysterectomy completed ALANNAH Suggs [facility] [employer] [facility] 07/11/2022 14:47:26 Imaging Results None recorded. Procedure Notes None recorded. Medical Equipment None Reported. Allergies Allergen ID Allergen Name Allergen Category Reaction Reaction Severity Criticality Documentation Date Start Date Code Code System Note Provider Name and Address Organization Details Recorded Time 02718 ampicilli n medicatio n Not available Not available Not available 07/11/2022 733 RxNorm ALANNAH Suggs [facility] [employer] [facility] 14:45:16 Medications Name Sig Start Date Stop Date Status Note LastModified by Organization Details LastModified Time celecoxib 200 mg capsule TAKE 1 CAPSULE DAILY active Not Available Not Available No t Available cyclobenzap rine 10 mg tablet TAKE 1 TABLET BY MOUTH AT BEDTIME NEEDED FOR MUSCLE SPASM active Not Available Not Available No t Available prednisone 10 mg tablet active Not Available Not Available Not Available levothyroxi ne 25 mcg tablet 07/11 completed Not Available Not Available Not Available prednisone 10 mg tablets in a dose pack Take 1 tab by mouth, 3 times a day for 3 daysTake 1 tab by mouth 2 times a day for 2 daysTake 1 tab by mouth once a day for 1 day 2022 active Not Available Not Available Not Avai lable Kenalog 10 mg/mL suspension for injection Take 20 mg by injection route. 2022 active [facility]: 0003- [phone]- [phone] Not Available Not Available Not Available clotrimazol e-betametha sone 1 %-0.05 % topical cream 07/11 completed Not Available Not Available Not Available Synthroid 88 mcg tablet active Not Available Not Available Not Available diclofenac sodium 75 mg tablet,bernardo yed release 07/11 completed Not Available Not Available Not Available Tri-Lo-Spri ntec 0.18 mg/0.215 mg/0.25 mg-0.025 mg tablet 07/11 completed Not Available Not Available Not Available ropivacaine (PF) 5 mg/mL (0.5 %) injection solution Take 20 mg by injection route. 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 Functional Status Question Answer Note LastModified by Organizat ion Details LastModified Time What is your level of alcohol consumption? Occasional Information not available 07/11/2022 Mental Status None recorded. Family History Relationship Description Onset Age of this Age Resolved Age Notes LastModified by Organization Details LastModified Time Father Family history of stroke [email or web address] Not available 2022 14:46:24 Medical History No medical history recorded. Gynecological HistoryNo gynecological history recorded. Obstetrics History GPAL:G 0 P 0 0 0 0 Past Encounters Encounter ID Performer Location Encounter Start Date Encounter Closed Date Diagnosis/Indication Diagnosis SNOMED-CT Code Diagnosis ICD10 Code Diagnosis IMO Codes Diagnosis Note [id number] Tamar Casas MD [facility] [place] [address] [place] [address] 07/11/2022 14:29:19 07/11/2022 15:55:53 Pain of left knee joint 8134021943 90664 M25.562 Osteoarthr itis of left knee joint 1448998050 34986 M17.12 [id number] Tamar Casas MD [facility] [place] [address] [place] [address] 08/22/2022 16:16:58 08/22/2022 17:29:33 Pain of left knee joint 9509245512 54696 M25.562 Osteoarthr itis of left knee joint 3324561836 14742 M17.12 Tear of me dial meniscus of knee 688703085 S83.242A [id number] Tamar Casas MD [facility] [place] [address] [place] [address] 08/29/2022 15:05:06 08/29/2022 16:13:40 Osteoarthritis of left knee joint 2969401688 99623 M17.12 Tear of me dial meniscus of knee 540356993 S83.242A Health Concerns Section Related Observation LastModified by Organization Detai ls LastModified Time None Recorded Concern Status LastModified by Organization Details LastModified Time None Recorded Advance Directives Directive None Recorded Payers Insurance Date Sequence Insurance Name Policy Number Policy Ferrell Covered Member ID Ferrell Member ID Guarantor Name 07/10/2022 1 [place] [id number] Rowdy Hoover [id number] Rosalie Hoover 09/25/2022 1 [employer] [id number] Rowdy Hoover [id number] 2 Rosalie Hoover Notes Date Note Type Note Provider Name and Address Organization Details Recorded Time 07/11/2022 text/html Patient is a 56-year-old female who presents with a two-month history of left knee pain she has had some issues on and off over the years but recently it has been much worse. She was doing lots of walking on a trip to [place] last month this is aggravated her knee even more. She reports crepitation through the arc of motion she has anterior to posterior knee pain some tenderness on the lateral side as well. She denies any swelling or effusion she does report significant crepitation occasionally her knee feels as though it wants to give way when she tries to go up and down stairs she states she cannot squat or kneel because of significant pain particularly with flexion of the knee. She has aching pain with start-up pain rest pain and night pain unrelieved by activity modification a patellar guide brace and [id number] ibuprofen. Denies any specific trauma or injury to the knee she does have some pain with flexion and full extension the knee lacks a couple of degrees of extension because of discomfort. She comes in today for initial evaluation treatment of her left knee pain as described. Past medical history sheet was reviewed and signed on intake sheet today's date drug allergies current medications family social history previous surgical history 10 point review of systems was reviewed and discussed in detail today with the patient. NICK Randhawa [address] [place] [address], [facility] [address], [place], [address], [place] [facility] [employer] 07/11/2022 15:45:02 08/22/2022 text/html Patient is a 56-year-old female who presents with a two-month history of left knee pain she has had some issues on and off over the years but recently it has been much worse. She was doing lots of walking on a trip to [place] last month this is aggravated her knee even more. She reports crepitation through the arc of motion she has anterior to posterior knee pain some tenderness on the lateral side as well. She denies any swelling or effusion she does report significant crepitation occasionally her knee feels as though it wants to give way when she tries to go up and down stairs she states she cannot squat or kneel because of significant pain particularly with flexion of the knee. She has aching pain with start-up pain rest pain and night pain unrelieved by activity modification a patellar guide brace and [id number] ibuprofen. Denies any specific trauma or injury to the knee she does have some pain with flexion and full extension the knee lacks a couple of degrees of extension because of discomfort. She comes in today for initial evaluation treatment of her left knee pain as described. Past medical history sheet was reviewed and signed on intake sheet today's date drug allergies current medications family social history previous surgical history 10 point review of systems was reviewed and discussed in detail today with the patient. Tamar Casas MD [address], [place], [address], [employer] 08/22/2022 17:05:25 08/29/2022 text/html Patient presents knee pain left. She has pain in the left knee primarily over the anterolateral aspect she does have some mechanical catching of the knee but her MRI scan did not show a tear. Tamar Casas MD [address], [place], [address], [facility] 08/29/2022 15:44:59 OBGyn Episode No OBEpisode recorded.
--- OUTSIDE RECORDS SUMMARY | 2024-12-04 08:56 | XMS_ITS | Encounter Summary ---
Author Organization [facility] Address [address] [place] [address] Care Team Providers Care Grit Removal Operator Name Role Phone Melecio Nascimento DO Primary Care Provider [phone] Encounter Details Date Type Department Care Team (Late st Contact Info) Description 12/02/2024 External Device Data ST[place] ABSTRACTION Provider, Abstract NO ADDRESS ON FILE Social History Tobacco Use Types Packs/Day Years Used Date Smoking Tobacco: Never Smokeless Tobacco: Never Alcohol Use Standard Drinks/Week Comments No 0 (1 standard drink = 0.6 oz pur e alcohol) Comments Unknown Sex and Gender Information Value Date Recorded Sex Assigned at Not on file Legal Sex Female 5:53 AM DIP DYER Gender Identity Not on file Sexual Orientation Not on file documented as of this encounter Plan of Treatment Not on file documented as of this encounter Visit Diagnoses Not on filedocumented in this encounter Care Teams Grit Removal Operator Relationship Specialty Start Date End Date Melecio Nascimento DO [address] [facility] [address] [place] [address] PCP - General Internal Medicine 10/11/17 documented as of this encounter
--- OUTSIDE RECORDS SUMMARY | 2024-12-04 08:56 | XMS_ITS | Clinical Summary ---
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 Active norethindrn a-e estradiol-iron (LOESTRIN FE) 1 mg-20 mcg (21)/75 mg (7) tablet Take 1 Tablet by mouth daily. Active diazePAM (VALIUM) 5 mg tablet Take 1 Tablet (5 mg) by mouth every 8 hours as needed for Spasm. 90 Tablet 11/03/2017 Active docusate sodium (COLACE) 100 mg capsule Take 1 Capsule (100 mg) by mouth 2 times daily. 60 Capsule 11/03/2017 Active oxyCODONE-aceta minophen (PERCOCET) 5-325 mg tablet Take 1-2 Tablets by mouth every 4 hours as needed for Pain. Max Daily Amount: 12 Tablets 90 Tablet 11/03/2017 Active Active Problems Problem Noted Date Diagnosed Date DDD (degenerative disc disease), lumbar 10/12/19 18 Encounters Date Type Department Care Team Description 12/02/2024 External Device Data STL ABSTRACTION Provider, Abstract 11/20/2024 3:28 PM CDT - 11/20/2024 11:59 PM CDT Hospital Encounter [facility] [address] [place] [address] Shiela Herzog APN Discharge Disposition: Home or Self Care 09/09/2024 External Device Data STL ABSTRACTION Provider, Abstract from Last 3 Months Family History Medical History Relation Name Comments Hypertension Father Stroke Father Breast Cancer Maternal Aunt Breast Cancer Paternal Aunt Relation Name Status Comments Father Maternal Aunt Alive Paternal Aunt Alive Social History Tobacco Use Types Packs/Day Years Used Date Smoking Tobacco: Never Smokeless Tobacco: Never Alcohol Use Standard Drinks/Week Comments No 0 (1 standard drink = 0.6 oz pur e alcohol) Comments Unknown Sex and Gender Information Value Date Recorded Sex Assigned at Not on file 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 Gender Identity Not on file Sexual Orientation Not on file Last Filed Vital Signs Vital Sign Reading Time Taken Comments Blood Pressure 112/79 11/22/2017 1:18 PM CDT Pulse 69 11/22/2017 1:18 PM CDT Temperature 37.1 C (98.8 F) 11/04/2017 8:07 AM CDT Respiratory Rate 18 11/04/2017 8:07 AM CDT Oxygen Saturation 100% 11/04/2017 8:07 AM CDT Inhaled Oxygen Concentration - - Weight 82.6 kg (182 lb) 11/22/2017 1:18 PM CDT Height 165.1 cm (5' 5) 11/22/2017 1:18 PM CDT Body Mass Index 30.29 11/22/2017 1:18 PM CDT Plan of Treatment Health Maintenance Due Date Last Done Comments DTAP/TDAP/TD VACCINES (1 - Tdap) 08/01/1986 HEPATITIS B VACCINES (1 of 3 - 19+ 3-dose series) 08/01/1986 HPV/Cotest (21-29) 08/01/1988 CERVICAL CANCER SCREENING 08/01/1997 HPV/Cotest (30-65) 08/01/1997 PAP SMEAR 08/01/1997 COLORECTAL SCREENING 08/01/2012 Colorectal Cancer Screening 08/01/2012 FIT-DNA Q 3 years 08/01/2012 FIT/FOBT Q 1 year 08/01/2012 Flex Sig/CT Colonography Q 5 years 08/01/2012 ZOSTER VACCINE (1 of 2) 08/01/2017 INFLUENZA VACCINE (#1) 2024 BREAST CANCER SCREENING 11/20/2025 11/20/2024, 11/13 Medical Devices Implanted Type Area Fish Fryer Device Identifier Shelf Expiration Date Model / Serial / Lot Cage Arnot L [id number] - Sload # 410 Sterilized 08/15/17 Implanted:Qty : 1 on 11/01/2017 by Gertrude Estrada MD at [facility] Arnot N/A: Spine Lumbar BIA- SPINE [id number] / LOAD # 410 STERILIZED 08/15/17 / Cage [id number] Implanted:Qty : 1 on 11/01/2017 by Gertrude Estrada MD at [facility] Cage N/A: Spine Lumbar BIA- SPINE [id number] / LOAD # 410 STERILIZED 08/15/17 / Description:All Bia spin al cages and other hardware was processed on requisition,[id number]. Hemostatic Surgiflo 8ml W/Thrombin 2994 - [id number] Implanted:Qty : 1 on 11/01/2017 by Gertrude Estrada MD at [facility] Hemostatic N/A: Spine Lumbar J&J- ETHICON INC 04/05/2019 2994 / / [id number] Plate Arnot Lock [id number] - Sload # 410 Sterilized 08/15/17 Implanted:Qty : 2 on 11/01/2017 by Gertrude Estrada MD at [facility] Plate N/A: Spine Lumbar BIA- SPINE [id number] / LOAD # 410 STERILIZED 08/15/17 / Screws Arnot Bone 5.0x30mm Implanted:Qty : 3 on 11/01/2017 by Gertrude Estrada MD at [facility] Screw N/A: Spine Lumbar BIA- SPINE [id number] / LOAD # 410 STERILIZED 08/15/17 / Screw Arnot-L 5.0x25mm [id number] - Sload # 410 Sterilized 08/15/17 Implanted:Qty : 3 on 11/01/2017 by Gertrude Estrada MD at [facility] Screw N/A: Spine Lumbar BIA- SPINE [id number] / LOAD # 410 STERILIZED 08/15/17 / Allgrft Vivigen Matrix 10ml Bl-1500-003 - [id number] Implanted:Qty : 1 on 11/01/2017 by Gertrude Estrada MD at [facility] Tissue N/A: Spine Lumbar LIFENET 09/26/2018 BL-1500-003 / [id number] / Description:REQ#[id number] Infuse Protein Kit [id number] - [id number] Implanted:Qty : 2 on 11/01/2017 by Gertrude Estrada MD at [facility] Tissue N/A: Spine Lumbar MEDTRONIC- SOFAMOR DANEK 10/05/2018 [id number] / / [id number] Description:REQ#[id number] Procedures Procedure Name Priority Date/Time Associated Diagnosis Comments MAMMO 3D SILVINA SCREEN BILAT W OR WO CAD Routine 11/20/2024 4:00 PM CDT Visit for screening mammogram from Last 3 Months Results * MAMMO 3D SILVINA SCREEN BILAT W OR WO CAD (11/20/2024 4:00 PM CDT) Anatomical Region Laterality Modality Breast Bilateral Mammography 11/20/2024 4:00 PM CDT Impressions 11/21/2024 8:24 AM CDT IMPRESSION: No mammographic evidence of malignancy. RECOMMENDATIONS: Routine screening mammogram in one year. DICTATION LOCATION: [facility] Narrative 11/21/2024 8:24 AM CDT BILATERAL FULL-FIELD DIGITAL SCREENING MAMMOGRAM WITH CAD WITH 3D TOMOSYNTHESIS DATE: 11/20/2024 4:00 PM HISTORY: Routine screening. TECHNIQUE: Full-field digital craniocaudal and mediolateral oblique projections of both breasts were obtained. Low-dose full-field digital breast tomosynthesis examination was performed with 2D and 3D acquisitions. Examination is read in conjunction with computer aided detection. COMPARISON: 2023 BREAST COMPOSITION: There are scattered areas of fibroglandular density. FINDINGS: No suspicious mass, suspicious microcalcifications, or architectural distortion in either breast is identified. Since the prior study, there has been no significant interval change. The computer aided diagnosis detects no significant abnormality. OVERALL FINAL ASSESSMENT: BI-RADS CATEGORY 1: Negative. Shiela Herzog APN MAMMO ORDERABLES Final Result from Last 3 Months Insurance [facility] C20 Advance Directives For more information, please contact: [phone] * Full Code (Latest Code Status on File) Date Activated Date Inactivated Comments 11/01/2017 2:03 PM 11/04/2017 2:52 PM * Full Code Date Activated Date Inactivated Comments 11/01/2017 6:14 AM 11/01/2017 2:03 PM Care Teams Risk Control Analyst Relationship Specialty Start Date End Date Melecio Nascimento DO [address] [facility] [address] [place] [address] PCP - General Internal Medicine 10/11/17
== END 2024-12-04 08:35 | disposition home or self-care (01) ==
LOC: ANHSURGERY 08:41
PROVIDERS: PCP Nurse Practitioner Family; Visit Provider Surgery
DX: Z01.818 Encounter for other preprocedural examination (principal); K43.2 Incisional hernia without obstruction or gangrene
CPT/HCPCS: 36415; 86850; 86900; 86901

== ENCOUNTER 2024-12-15 00:15 | Day surgery (SDC) | payer OTHER, SELFPAY ==
--- OUTSIDE RECORDS SUMMARY | 2023-09-23 18:00 | XMS_ITS | Continuity of Care Document ---
Author Organization [facility] Address [address] [place] [address] Care Team Providers Care Prosthetist Name Role Phone Marcie Nj MD Unavailable Unavailable Procedures Procedure Date Ecg-routine 12 Lead; Intrpt & 4 Echo W/rest & Stress-interp & 3 Cv Stress; Interpt & Reprt Onl 23 Cv Stress; Phys Supervs Only Stress Echo Echo W/rest & Stress-interp & 0 Cv Stress; Phys Supervs Only Cv Stress; Interpt & Reprt Onl 10 Advance Directives Directive Yes / No Effective Date File Name No Information Encounters Encounter Description Practice Location Reason(s) For Visit Diagnoses Date Provider Providers Copied on Encounter [facility], [address] [place] [address], [facility], [facility] No Information 4 Clem Jack. [address] [place] [address], [address], . tel:[phone] Referring Provider: Shaheen Mendez MD Isma, [address] [place], [address] . tel:[phone] [facility], [address] [place] [address], [address], [facility] No Information 3 Zeb Sharp. [address] [place] [address], [place], [facility], . tel:[phone] Referring Provider: Jovi Gore, [address] [place] [address], [id number]. tel:[phone] [facility], [address] [place] [address], [facility], [facility] No Information 2201 7 Nila Mijares. [address] [facility], [address], [facility] [address], [place], [id number], [place]. tel:[phone] Referring Provider: Jovi Gore, [address] [place] [address], [address]. tel:[phone] [facility], [address] [place] [address], [facility], [facility] No Information 201 0 Alejandro Masterson. [address] [place] [address], [facility], . tel:[phone] Referring Provider: Jovi Gore, [address] [place] [address], [id number]. tel:[phone] Family History Family Member Type Diagnosis Age At Onset No Information Payers Payer name Insurance type Covered constitution party ID Authoriza tion(s) [employer] [facility] [id number] Social History Type Description Quantity Date Captured Comments Sex Female Smoking Status No Information Chief Complaint And Reason For Visit No Information Reason For Referral Reason For Referral No Information History Of Present Illness Encounter Date Complaint History Of Prese nt Illness No Information Functional Status Date Functional Assessmen t No Information Instructions Date Instruction Additional Infor mation No Information Assessments Type Assessment Date No Information Patient Care Teams Name Effective Dates (start - stop) Status Members No Information
[2024-12-03 13:26] VITALS: BMI 33.3
--- NOTE | 2024-12-03 13:42 | PC.NURSE ---
[facility] has started construction of its new state of the art ER which will open Spring 2026. With this, we anticipate parking may be a challenge for some our surgical patients and families. Parking spaces are limited but are available for all Surgical, obstetrics, and ER patients sharing this lot. If you arrive and find you are having a hard time finding a parking space, please note that we understand the challenges, please drive around the hospital and park near Hospital Entrance 1. When you enter this entrance, you can ask a volunteer to direct or take you back to the surgical waiting area to check in. We appreciate everyone?s understanding of these expected challenges while we build for your future. Report to the Outpatient Waiting Room, entrance under the green pavilion located off [address], at time __0900 on date __12/15/24 . Planned Procedure Time: __1100 .? Time changes happen often and if your time is changed the preop area will call you the afternoon before. - You and your visitor will be asked to self-screen and do not enter if you have any COVID symptoms. Please call surgeon if you need to reschedule. - A mask is optional within the hospital at this time. Patients may have clear liquids (water, carbonated beverages, clear teas, apple juice) until 3 hours prior to surgery with a maximum of 20 ounces. - No food from midnight until time of surgery and no smoking, or chewing tobacco (or any form of nicotine). No chewing gum, candy or mints. - Infants may have breast milk until 4 hours before surgery, infant formula 6 hours prior to surgery. - Children will be allowed to drink immediately following surgery.? If applicable, please bring a bottle or sippy cup to assist with drinking. Juice, water, soda, and popsicles are readily available.? For infants on formula, please bring formula the day of surgery.? Pacifiers are allowed. Take only the following medications with a SIP of water on the morning of surgery: ___Levothyroxine DO NOT STOP ANY OF YOUR OTHER PRESCRIPTION MEDICATIONS PRIOR TO SURGERY EXCEPT THE FOLLOWING Hold all vitamins and supplements for 3 days per anesthesiologist. Medications to discontinue per physician N/A Date to take last dose____N/A Please no make-up, nail mauritanian, hairspray, perfume, deodorant, or body powder the day of surgery.? No jewelry (including any body piercings) or valuables the day of surgery, leave them at home.? Please take a shower or bath the night before, or the morning of, surgery with an antibacterial soap.? Wear comfortable, loose fitting clothing.? Children are encouraged to wear pajamas. - Jewelry must be removed prior to entering the operating room.? Rings and piercings that are not removed may be cut off. - The hospital will not accept responsibility for valuables.? - Please leave all valuables, including medications, at home the day of surgery. If you are going home after surgery, a licensed wheelchair van driver must drive you home.? - NO public transportation without another adult if you receive anesthesia. - We recommend that an adult stay with you for 24 hours following discharge. - We also recommend that you do not drive, make important decision, drink alcoholic beverages, or take any drugs that were not prescribed by your health care provider for at least 24 hours after your discharge time. For Pediatric surgeries, we recommend two adults accompany the child home. Follow any additional instructions given to you from your surgeon. Telephone instructions given to _Rosalie__and asked if any additional questions and then verbalized understanding. Patient advised to call surgeon office or pre surgery nurse liaison [phone] if any additional questions.
[2024-12-15] VITALS (9 sets, daily range): BP systolic 109–132; BP diastolic 62–84; PULSE 55–65; RESP 9–16; TEMP 36.1–36.2; O2SAT 94–100; BMI 33.9
--- OUTSIDE RECORDS SUMMARY | 2024-12-15 00:18 | XMS_ITS | Clinical Summary ---
Author Organization [facility] Address [address] [place] [address] Care Team Providers Care Ceramic Painter Name Role Phone Herzog Shiela RADHA Primary Care Provider [phone] Social History Tobacco Use Types Packs/Day Years Used Date Smoking Tobacco: Never Assessed Comments Unknown Sex and Gender Information Value Date Recorded Sex Assigned at Female 08/29/2024 9:40 AM CDT Legal Sex Female 9:56 AM CDT Gender Identity Female 08/29/2024 9:40 AM CDT Sexual Orientation Straight 08/29/2024 9: 40 AM CDT Plan of Treatment Health Maintenance Due Date Last Done Comments Cervical Cancer Screening Pap Smear (Age 30 to 64) Every 3 Years 1965 Colorectal Cancer Screening Colonoscopy (10 Years) 1965 Annual Physical 08/01/1970 Hepatitis C 08/01/1985 DTaP, Tdap and Td Vaccines (1 - Tdap) 08/01/1986 Hepatitis B Vaccines (1 of 3 - 19+ 3-dose series) 08/01/1986 Cervical Cancer Screening Pap with HPV Testing (Age 30 to 64) Every 5 Years 08/01/1997 Cervical Cancer Screening with HPV 08/01/1997 Pneumococcal Vaccine: 50+ Years (1 of 1 - PCV) 08/01/2017 COVID-19 Vaccine ( season) 2024 11/02/2023, 10/23/2022, 11/20/2021, Additional history exists Influenza Adult (#1) 2024 11/02/2023, 10/23/2022, 12/09/2021, Additional history exists Mammogram Screening 11/13/2025 11/14/2023 Zoster Vaccines Completed 12/03/2023, 10/03/2023 Hepatitis A Vaccines Aged Out No long er eligible based on patient's age to complete this topic Meningococcal B Vaccine Aged Out No l onger eligible based on patient's age to complete this topic Meningococcal Vaccine Aged Out No rola laxmi eligible based on patient's age to complete this topic RSV Immunizations Under 20 Months Aged Out No longer eligible based on patient's age to complete this topic Care Teams Ceramic Painter Relationship Specialty Start Date End Date Shiela Herzog APNP [address] [id number] PCP - General Nurse Practitioner Family 08/29/24
--- OUTSIDE RECORDS SUMMARY | 2024-12-15 00:18 | XMS_ITS | Data Portability ---
Author Organization [place] [facility], Main Office Address [address] [place] [address] Care Team Providers Care Clinical Research Management Associate Name Role Phone SYDNI RUGGIERO Primary Care Provider SYDNI RUGGIERO Referring Provider [phone] Assessment Encounter Date Assessment Date Assessment LastModified [...] the patient and agree with the findings. [email or web address] Not available 08/29/2022 15:40:32 Plan of Treatment Reminders Order Date Submit Date Provider Last Modified By Organization Details Last Modified Time Details Appointments None recorded. Lab None recorded. Referral physical therapist referral - please contact patient to schedule 2022 023 [email or web address] [place], [address] [place] [address], [place], [address], 3 16:05:11 Procedures injection/a spiration joint/bursa (PROC) - in office procedure, administere d by provider 2022 023 [email or web address] In-Office Order, Internal Use Only DO Not Attach Compendium DO Not Attach Compendium, Do Not Delete/merge, [id number] 3 15:34:34 injection/a spiration joint/bursa (PROC) - in office procedure, administere d by provider 2022 023 [email or web address] In-Office Order, Internal Use Only DO Not Attach Compendium DO Not Attach Compendium, Do Not Delete/merge, [id number] 3 15:36:09 Surgeries None recorded. Imaging MRI, knee, w/o contrast 2022 023 [facility], [address], [place], [address], 3 14:20:35 XR, knee 2022 023 [email or web address] [facility] [place], [address], [place], [address], 3 15:55:53 Medication Orders prednisone 10 mg tablets in a dose pack [address] [facility], [address] [facility], [place], [place], [id number], 3 15:40:44 Kenalog 10 mg/mL suspension for injection [address] [facility]21, [address] [place], [place], [id number], 3 15:40:44 ropivacaine (PF) 5 mg/mL (0.5 %) injection solution 2022 023 [address] [facility], [address] [place], [id number], 3 15:40:44 Kenalog 10 mg/mL suspension for injection 2022 023 [address] [facility], [address] [place], [id number], 3 15:45:08 ropivacaine (PF) 5 mg/mL (0.5 %) injection solution 2022 023 [address] [facility], [address] [place], [place], [id number], 3 15:45:08 celecoxib 200 mg capsule 2022 023 [address] [facility], [address] [place], [place], [id number], 3 15:45:08 Patient TargetsNo targets recorded. Patient [...] observ ation record ed. [email or web address] [facility] [place] [address] 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 [...] tear of the inner margin of the fan mail clerk ior horn of the medial menisc us. [...] 4:53 PM (CT) Page 2 of 3 [facility] Jaja dyson Name: RANULFO GUIDRY Access ion #: [id number] Sex: F : 1965 Exam Date: 023 11:47 AM Exam Name: MRI KNEE LT WO Admitt ing Diagno sis(es ): Dictat ed by: Levi padilla MD DD: 023 4:53 PM (CT) DT: 023 4:53 PM (CT) Page 3 of [address] (Imaging) [address] [place], [address], 08/24/2022 19:21:05 08/26/19 23 08/24/2022 MRI, knee, w/o contr ast No observ ation record ed. [email or web address] [facility] [address], [place], [address], 08/25/2022 14:20:35 Result Notes None recorded. Problems Name Problem SNOMED Code Status Onset Date Resolution Date Notes Provider Name and Address Organization Details Recorded Time Disorder of shoulder 865407930 Active Not Available [facility] 3 13:12:38 Shoulder joint pain 007183147 Active Not Available [facility] 3 13:12:38 Low back pain 901597200 Active Not Available [facility] 3 13:12:38 Pain of right knee joint 3900062358767 00 Active 2022 ALANNAH Suggs null, [place] [facility] 3 14:48:01 Pain of left knee joint 7721204805345 07 Active 2022 Mildred Kirkland null, [place] [facility] 3 15:32:05 Osteoarthr itis of left knee joint 9621642239451 09 Active 2022 NICK Randhawa [address] [facility], [place], [address] , [employer] [facility] [employer] [facility] 3 15:43:24 Tear of medial meniscus of knee 559498493 Active 2022 Tamar Casas MD [address] [facility], [facility] [address], [place], [address] , [facility] [employer] [facility] [employer] [facility] 3 17:04:45 Tear of medial meniscus of knee 299529880 Active 2022 Tamar Casas MD [address] [facility], [facility] [address], [place], [address] , [employer] [facility] [employer] [facility] 3 17:04:57 Problem Notes None recorded. Procedures Surgical History Date Name Laterality Status Provider Name and Address Organization Details Recorded Time 08/30/19 Ortho - Cortisone Injection completed Tamar Casas MD [address] [facility], [facility] [address], [place], [address], [employer] [facility] [employer] [facility] 08/29/2022 15:38:18 lumbar spinal fusion completed ALANNAH Suggs [facility] [employer] [facility] 07/11/2022 14:47:15 Hysterectomy completed ALANNAH Suggs [facility] [employer] [facility] 07/11/2022 14:47:26 Imaging Results None recorded. Procedure Notes None recorded. Medical Equipment None Reported. Allergies Allergen ID Allergen Name Allergen Category Reaction Reaction Severity Criticality Documentation Date Start Date Code Code System Note Provider Name and Address Organization Details Recorded Time 26526 ampicilli n medicatio n Not available Not available Not available 07/11/2022 733 RxNorm ALANNAH Suggs [facility] [employer] [facility] 14:45:16 Medications Name Sig Start Date Stop [...] 20 mg by injection route. 2022 active [facility]: [phone]- [phone] Not Available Not Available [...] 20 mg by injection route. 2022 active [facility] [phone] -[phone] Not Available Not Available Not Available Vitals Date Recorded Body height Body mass index (BMI) Body weight Provider Name and Address Organization Details Last Updated DateTime 07/11/2022 165.1 cm 30 kg/m2 53212.63 deyanira ALANNAH Suggs [employer] 07/11/2022 14:45:02 Date Recorded Body height Body mass index (BMI) Body weight Provider Name and Address Organization Details Last Updated DateTime 08/22/2022 165.1 cm 30 kg/m2 96347.63 deyanira Mckayla Briggs CNA [employer] 08/22/2022 16:21:35 Date Recorded Body height Body mass index (BMI) Body weight Provider Name and Address Organization Details Last Updated DateTime 08/29/2022 165.1 cm 30 kg/m2 44930.63 deyanira Bharti Monge [employer] 08/29/2022 15:08:37 Social History None recorded. Functional Status Question Answer Note LastModified by Organizat ion Details LastModified Time What is your level of alcohol consumption? Occasional [email or web address] Information not available 07/11/2022 Mental Status None recorded. Family History Relationship Description Onset Age of this Age Resolved Age Notes LastModified by Organization Details LastModified Time Father Family history of stroke [email or web address] Not available 2022 14:46:24 Medical History No medical history recorded. Gynecological HistoryNo gynecological history recorded. Obstetrics History GPAL:G 0 P 0 0 0 0 Past Encounters Encounter ID Performer Location Encounter Start Date Encounter Closed Date Diagnosis/Indication Diagnosis SNOMED-CT Code Diagnosis ICD10 Code Diagnosis IMO Codes Diagnosis Note [id number] Tamar Casas MD [facility] [place] [address] [place] [address] 07/11/2022 14:29:19 07/11/2022 15:55:53 Pain of left knee joint 9350548976 90376 M25.562 Osteoarthr itis of left knee joint 9899357614 20922 M17.12 [id number] Tamar Casas MD [facility] [place] [address] [place] [address] 08/22/2022 16:16:58 08/22/2022 17:29:33 Pain of left knee joint 9228679792 11096 M25.562 Osteoarthr itis of left knee joint 4846040136 80136 M17.12 Tear of me dial meniscus of knee 506205206 S83.242A [id number] Tamar Casas MD [facility] [place] [address] [place] [address] 08/29/2022 15:05:06 08/29/2022 16:13:40 Osteoarthritis of left knee joint 3979789293 53375 M17.12 Tear of me dial meniscus of knee 579608182 S83.242A Health Concerns Section Related Observation LastModified by Organization Detai ls LastModified Time None Recorded Concern Status LastModified by Organization Details LastModified Time None Recorded Advance Directives Directive None Recorded Payers Insurance Date Sequence Insurance Name Policy Number Policy Ferrell Covered Member ID Ferrell Member ID Guarantor Name 07/10/2022 1 [place] [id number] Rowdy Hoover [id number] Rosalie Hoover 09/25/2022 1 [employer] [id number] Rowdy Hoover [id number] Rosalie Hoover Notes Date Note Type [...] activity modification a patellar guide brace and bewf-gdx-gtmtsoh ibuprofen. Denies any specific trauma or injury [...] detail today with the patient. NICK Randhawa [address] [place] [address], [facility] [address], [place], [address], [place] [facility] [employer] 07/11/2022 15:45:02 08/22/2022 text/html Patient is a [...] activity modification a patellar guide brace and meau-zas-elmqhuh ibuprofen. Denies any specific trauma or injury [...] Casas MD [address], [place], [address], [employer] 08/22/2022 17:05:25 08/29/2022 text/html Patient presents knee pain left. She has pain in the left knee primarily over the anterolateral aspect she does have some mechanical catching of the knee but her MRI scan did not show a tear. Tamar Casas MD [address], [place], [address], [employer] 08/29/2022 15:44:59 OBGyn Episode No OBEpisode recorded.
--- OUTSIDE RECORDS SUMMARY | 2024-12-15 00:18 | XMS_ITS | Clinical Summary ---
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 Springdale N/A: Spine Lumbar BRISA- SPINE [id number] / LOAD # 410 STERILIZED 08/15/17 / Cage [id number] Implanted:Qty : 1 on 11/01/2017 by Gertrude Estrada MD at [facility] Cage N/A: Spine Lumbar BRISA- SPINE [id number] / LOAD # 410 STERILIZED 08/15/17 / Description:All [place] spin al cages and other hardware was processed on requisition,[id number]. Hemostatic Surgiflo 8ml W/Thrombin 2994 - [id number] Implanted:Qty : 1 on 11/01/2017 by Gertrude Estrada MD at [facility] Hemostatic N/A: Spine Lumbar J&J- ETHICON INC 04/05/2019 2994 / / [id number] Plate [place] Lock [id number] - Sload # 410 Sterilized 08/15/17 Implanted:Qty : 2 on 11/01/2017 by Gertrude Estrada MD at [facility] Plate N/A: Spine Lumbar BRISA- SPINE [id number] / LOAD # 410 STERILIZED 08/15/17 / Screws Springdale Bone 5.0x30mm Implanted:Qty : 3 on 11/01/2017 by Gertrude Estrada MD at [facility] Screw N/A: Spine Lumbar BRISA- SPINE [id number] / LOAD # 410 STERILIZED 08/15/17 / Screw [place]-L 5.0x25mm [id number] - Sload # 410 Sterilized 08/15/17 Implanted:Qty : 3 on 11/01/2017 by Gertrude Estrada MD at [facility] Screw N/A: Spine Lumbar BRISA- SPINE [id number] / LOAD # 410 STERILIZED 08/15/17 / Allgrft Vivigen Matrix 10ml Bl-1500-003 - [id number] Implanted:Qty : 1 on 11/01/2017 by Gertrude Estrada MD at [facility] Tissue N/A: Spine Lumbar LIFENET 09/26/2018 BL-1500-003 / [id number] / Description:REQ#[id number] Infuse Protein Kit [id number] - [id number] Implanted:Qty : 2 on 11/01/2017 by Gertrude Estrada MD at [facility] Tissue N/A: Spine Lumbar [employer]- SOFAMOR DANEK 10/05/2018 [id number] / / [id number] Description:REQ#[id number] Procedures Procedure Name Priority Date/Time Associated Diagnosis [...] screening mammogram in one year. DICTATION LOCATION: [facility] Narrative 11/21/2024 8:24 AM CDT BILATERAL FULL-FIELD [...] Result from Last 3 Months Insurance [facility], [facility] C20 Advance Directives For more information, please contact: [phone] * Full Code (Latest Code Status on File) Date Activated Date Inactivated Comments 11/01/2017 2:03 PM 11/04/2017 2:52 PM * Full Code Date Activated Date Inactivated Comments 11/01/2017 6:14 AM 11/01/2017 2:03 PM Care Teams Telemarketing Sales Representative Relationship Specialty Start Date End Date Melecio Nascimento DO [address] [facility] [address] [place] [address] PCP - General Internal Medicine 10/11/17
[2024-12-15] MEDS: ACETAMINOPHEN 500 MG TABLET 1000 MG PO (09:50)
[2024-12-15] MEDS: KETOROLAC 15 MG/ML VIAL (*BKC) IV PUSH (09:50)
[2024-12-15] MEDS: LACTATED RINGERS 1,000 ML 30 ML IV CONT ×3 (09:55→15:10)
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
--- NOTE | 2024-12-15 11:47 | WPDHPUPDATE1 ---
History and Physical Update Update Date/Time: 12/15/24 11:47 History and Physical has been reviewed, including an updated exam of the patient. There are NO changes in the patient's condition. Risks, benefits, and alternatives have been discussed and questions answered. Patient agrees to proceed with procedure.
[2024-12-15] MEDS: ceFAZolin 2 GM in SODIUM CHLORIDE 0.9% IV 50 ML 100 ML IVPB (12:05)
[2024-12-15] MEDS: BUPIVACAINE/EPINEPHRINE 0.5% 50 ML VIAL 30 ML INFILTRATE (12:51)
--- NOTE | 2024-12-15 13:57 | W.PM.PROC2 ---
Procedure Note - Detailed Date of Procedure 12/15/24 Pre-op Diagnosis lower midline incisional hernia measuring 3 cm Post-op Diagnosis Same Procedure Performed Robotic assisted repair incisional hernia measuring 3 cm with mesh Surgeon Yvette Gomez MD Database Security Expert Ramesh Anesthesia General and Local Indications 59-year-old female presenting with a lower midline incisional hernia measuring approximately 3 cm Findings 3 cm lower midline incisional hernia Description of Procedure The patient was taken the operating room placed in the supine position. After adequate induction of general anesthesia, the patient was prepped and draped in normal sterile fashion. A time-out was then done to verify the patient's identity as well as the procedure being performed. I began by making a 8 mm incision in the left upper quadrant. Through this, a Veress needle was placed into the peritoneal cavity and CO2 gas was insufflated. After adequate pneumoperitoneum was achieved, a 8 mm Optiview trocar was placed through this incision. I then placed the laparoscope through this trocar site and under direct visualization I placed a further 8 mm port in the left mid abdomen, as well as an additional 8 mm port in the left lower abdomen. The robot was then docked to the 3 port sites. I then went to the robotic console. I began by identifying the hernia. A moderate-sized incision hernia was noted in the lower midline. Using graspers, I was able to reduce this hernia. The hernia was noted to contain a large amount of preperitoneal fat and omentum. Once reduced, I also reduced and dissected out the hernia sac. I then closed the approximately 3 cm defect with 0 strata fix suture. I then placed a 15 x 10 cm Ventralight mesh into the abdominal cavity. The positional stitch was placed in the middle of the mesh and brought up centering the mesh over the defect. Once this was done, I used 2 0 V lock suture x 2 to circumferentially suture the mesh to the abdominal. Once the mesh was completely sutured in, I was happy with our tension-free repair. The mesh was noted to have good overlap of the defect. At this point, the robot was undocked and all ports were removed. All port sites were then closed with 4 O Monocryl subcuticular suture. The patient tolerated the procedure well, is extubated in the operating room postoperative, and transferred to the recovery room in stable condition. Implants 15 x 10 cm Ventralight mesh in the underlay position Estimated Blood Loss 10 Drains No Packing No Pathology None sent Complications No immediate complications Condition Stable Disposition PACU [facility] Billing Surgery - Charge Forward: Surgery Billing
[2024-12-15] MEDS: fentaNYL CITRATE INJ (*CRX) 100 MCG/2 ML VIAL 25 MCG IV PUSH ×2 (14:18→14:21)
--- NOTE | 2024-12-15 15:20 | SUR.PHASEII ---
1510 PATIENT HAS SLIGHT LEFT EYE WEAKNESS FROM PAST BRAIN INJURY PER PATIENT AND SPOUSE; UNCHANGED AT THIS TIME. SMILE SYMMETRICAL. SPEECH IS CLEAR.
[2024-12-15] MEDS: oxyCODONE HCL (*CRX) 5 MG TAB IR PO (15:30)
== END 2024-12-15 16:09 | disposition home or self-care (01) ==
PROVIDERS: PCP Nurse Practitioner Family; Visit Provider Surgery
PROC: (CPT 49593; principal; 2024-12-15 11:00)
DX: K43.2 Incisional hernia without obstruction or gangrene (principal); E03.9 Hypothyroidism, unspecified; G47.10 Hypersomnia, unspecified; M19.90 Unspecified osteoarthritis, unspecified site; E66.9 Obesity, unspecified; Z68.33 Body mass index [BMI] 33.0-33.9, adult; Z98.890 Other specified postprocedural states; Z98.1 Arthrodesis status; Z93.0 Tracheostomy status
CPT/HCPCS: 49593; S2900; J0690; A9270; C1781; J1100; J1885; J2003; J2250; J2405; J2704; J3010; J7030; J7120